=== PATIENT | male | born 1945 | race Caucasian/White ===

== ENCOUNTER 2018-11-06 12:45 | Outpatient (CLI) | payer MEDICARE ==
--- NOTE | 2018-11-06 14:39 | XRAY Report ---
Reason: ARTHRITIC DEFORMITY Procedure Date: 11/06/2018 Accession Number: [id number] / [id number] Procedure: XR - Hand 2 View BILAT CPT Code: FULL RESULT: EXAMS: 1. Right Hand Radiography 2. Left Hand Radiography EXAM DATE: 11/06/2018 01:22 PM. CLINICAL HISTORY: ARTHRITIC DEFORMITY. COMPARISON: None. TECHNIQUE: 2 views each hand. FINDINGS: Right: Bones: Bone density appears normal for age. No fractures or bone lesions. Joints: Significant degenerative joint space narrowing and productive arthrosis of the fourth IP joint, first CMC joint and base of thumb. Milder degenerative joint space narrowing of the second and third MCP joints and STT joints of the wrist. Soft Tissues: Fusiform soft tissue swelling of the fourth IP joint and base of thumb region. Left: Bones: Bone density appears normal for age. No fractures or bone lesions. Joints: Asymmetric degenerative joint space narrowing of the first through third MCP joints with mild to moderate osteoarthrosis of the first and second MCP joint and mild arthrosis of the third MCP joint. Mild degenerative changes of the second DIP. Soft Tissues: Normal. No soft tissue swelling. IMPRESSION: Bilateral asymmetric pattern of osteoarthritis as described worse on the right. RADIA
--- NOTE | 2018-11-06 14:40 | XRAY Report ---
Reason: ARTHRICTIC DEFORMITY Procedure Date: 11/06/2018 Accession Number: [id number] / [id number] Procedure: XR - Wrist 2 View BILAT CPT Code: FULL RESULT: EXAMS: 1. RIGHT WRIST RADIOGRAPHY 2. LEFT WRIST RADIOGRAPHY EXAM DATE: 11/06/2018 01:31 PM. CLINICAL HISTORY: Arthritic deformity. COMPARISON: None. TECHNIQUE: 2 views each wrist. FINDINGS: Right: Bones: Normal. No fractures or bone lesions. Joints: Mild to moderate widening of the scapholunate distance. Moderate productive osteoarthritis of the base of thumb. Mild degenerative arthrosis of the STT joint. Soft Tissues: Normal. No soft tissue swelling. Left: Bones: Normal. No fractures or bone lesions. Joints: Mild to moderate widening of the scapholunate distance. Soft Tissues: Normal. No soft tissue swelling. 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 RADIA
== END 2018-11-06 12:46 | disposition home or self-care (01) ==
LOC: DI 12:45
PROVIDERS: ATTEND Internal Medicine
DX: M19.042 Primary osteoarthritis, left hand (principal); M19.041 Primary osteoarthritis, right hand; M18.0 Bilateral primary osteoarthritis of first carpometacarpal joints; M19.032 Primary osteoarthritis, left wrist; M19.031 Primary osteoarthritis, right wrist

== ENCOUNTER 2018-11-24 08:10 | Outpatient (CLI) | payer MEDICARE ==
--- NOTE | 2018-11-24 12:18 | DEXA Report ---
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 Regions measured are the AP Spine, femoral neck, and if needed forearm. COMPARISON: The 10/11/2014 examination cannot be directly compared as this prior study was performed on a device from a different mobile application architect. In accordance with the International Society for Clinical Densitometry (ISCD) guidelines, data from previous exams may be reanalyzed using current recommendations and techniques. This is done to allow a more accurate basis for comparison with the current study. FINDINGS: The data for the lumbar spine is as follows: BMD (g/cm/cm) T-SCORE Z-SCORE REGION L1 0.878 -2.4 -2.2 L2 0.928 -2.6 -2.5 L3 1.108 -1.1 -1.0 L4 1.158 -0.7 -0.6 TOTAL 1.021 -1.7 -1.5 NOTE: All evaluable vertebrae are used for classification The data for the hip is as follows: BMD (g/cm/cm) T-SCORE Z-SCORE REGION Neck 0.837 -1.8 -1.3 TOTAL 0.832 -1.9 -1.8 NOTE: The femoral neck or total proximal femur, whichever is lowest, is used for classification. IMPRESSION: THE WHO CLASSIFICATION BASED ON THE INTERNATIONAL REFERENCE STANDARD IS OSTEOPENIA. THE FRACTURE RISK IS INCREASED. RECOMMENDATION: Patients with diagnosis of osteoporosis or osteopenia should have regular bone mineral density assessment. For those eligible for Medicare, routine testing is allowed once every 2 years. Testing frequency can be increased for patients who have rapidly progressing disease or for those who are receiving medical therapy to restore bone mass. COMMENT: World Health Organization (WHO) definitions for osteoporosis and osteopenia: NORMAL BMD: T-score at -1.0 or higher, fracture risk is low OSTEOPENIA BMD: T-score between -1.0 and -2.5, fracture risk is increased. OSTEOPOROSIS BMD: T-score at -2.5 or lower, fracture risk is high. National Osteoporosis Foundation recommends: 1. Obtain adequate dietary calcium (at least 1200 mg per day) and vitamin D (400-800 international units per day). 2. Participate, as appropriate, in regular weightbearing and muscle-strengthening exercise. 3. Avoid tobacco use and reduce alcohol and caffeine intake. 4. For more detailed information see the website at www.NOF.org.
== END 2018-11-24 08:11 | disposition home or self-care (01) ==
LOC: DI 08:10
PROVIDERS: ATTEND Internal Medicine
DX: Z13.820 Encounter for screening for osteoporosis (principal); M85.89 Other specified disorders of bone density and structure, multiple sites; Z79.52 Long term (current) use of systemic steroids
CPT/HCPCS: 77080

== ENCOUNTER 2021-08-23 13:28 | Outpatient (CLI) | payer MEDICARE | END 2021-08-23 13:29 | disposition critical access hospital (66) | LOC: EMS 13:28 | DX: S61.512A Laceration without foreign body of left wrist, initial encounter (principal); W01.0XXA Fall on same level from slipping, tripping and stumbling without subsequent striking against object, initial encounter; W26.9XXA Contact with unspecified sharp object(s), initial encounter; Y92.009 Unspecified place in unspecified non-institutional (private) residence as the place of occurrence of the external cause | CPT/HCPCS: A0425; A0429 ==

== ENCOUNTER 2021-08-23 13:40 | Emergency (ER) | payer MEDICARE ==
[2021-08-23] MEDS ORDERED: BUFFERED LIDOCAINE 10 ML SYRINGE IU ONE (14:01)
[2021-08-23] MEDS ORDERED: TETANUS/DIPHTHERIA/PERTUSSIS 0.5 ML SYRINGE IM ONE (14:02)
[2021-08-23] MEDS ORDERED: HYDROmorphone 1 MG/ML CARPUJECT IVP STA (14:04)
[2021-08-23] MEDS ORDERED: oxyCODONE 5 MG TABLET PO STA ×2 (14:05→14:46)
[2021-08-23] MEDS ORDERED: lidocaine 1% 20 ML MDV SUBQ STA (14:06)
--- NOTE | 2021-08-23 14:06 | ED Physician Documentation ---
History of Present Illness - Stated complaint Stated Complaint: GLF/FOREARM LAC - Chief complaint Chief Complaint: Laceration - History obtained from History obtained from: Patient - Additonal information Additional information: Patient is brought to the emergency department by EMS for chief complaint of left wrist laceration and ground-level fall. The patient was walking when he tripped and fell on a glass jug, which broke, lacerating his left wrist and hand. The patient states that he was not hurt in any other way. He does not know when his last tetanus shot was. No other complaints at this time. Review of Systems Ten Systems: 10 systems reviewed and negative Constitutional: reports: Reviewed and negative Eyes: reports: Reviewed and negative Ears: reports: Reviewed and negative Nose: reports: Reviewed and negative Throat: reports: Reviewed and negative Cardiac: reports: Reviewed and negative Respiratory: reports: Reviewed and negative GI: reports: Reviewed and negative : reports: Reviewed and negative Skin: reports: Laceration (s) Musculoskeletal: reports: Reviewed and negative Neurologic: reports: Reviewed and negative Psychiatric: reports: Reviewed and negative Endocrine: reports: Reviewed and negative Immunocompromised: reports: Reviewed and negative PD PAST MEDICAL HISTORY - Past Medical History Cardiovascular: Hypertension Respiratory: Asthma Endocrine/Autoimmune: None GI: None : None HEENT: None Psych: None Musculoskeletal: Osteoarthritis Derm: None - Past Surgical History Past Surgical History: Yes - Present Medications Home Medications: Ambulatory Orders Medication Instructions Recorded Confirmed Albuterol 2.5 mg INH Q4H PRN 04/14/13 04/14/13 oxyCODONE ORAL SOLN [Roxicodone] 10 mg PO 04/14/13 04/14/13 Docusate Calcium [Stool Softener] 240 mg PO 11/21/13 11/21/13 Prednisone 20 mg PO BID PRN 11/21/13 11/21/13 lisinopriL [Lisinopril] 5 mg PO 11/21/13 11/21/13 - Allergies Allergies/Adverse Reactions: Allergies Allergy/AdvReac Type Severity Reaction Status Date / Time No Known Drug Allergies Allergy Verified 08/23/21 13:55 - Social History Does the pt smoke?: No Smoking Status: Former smoker Does the pt drink ETOH?: No PD ED PE NORMAL - Vitals Vital signs reviewed: Yes - General General: Alert and oriented X 3, No acute distress, Well developed/nourished - HEENT HEENT: Atraumatic, PERRL, EOMI, Moist mucous membranes - Cardiac Cardiac: Strong equal pulses (Pulses strong wound left wrist) - Respiratory Respiratory: No respiratory distress - Derm Derm: Normal color, Warm and dry, No rash, Other (20x 1.5 cm (variable) lac extending from proximal first and proximally to wrist and forearm. Flexor tendon which appears to most likely be palmaris longus has been lacerated completely. Nonpulsatile bleeding from wound.) - Extremities Extremities: No deformity, No edema, Other (Flexion to resistance intact at all joints of all fingers. Flexion against resistance intact at the wrist, though diminished, but difficult to tell if this is secondary to pain.) - Neuro Neuro: Alert and oriented X 3 - Psych Psych: Normal mood, Normal affect Results - Vitals Vitals: Oxygen O2 Source Room air - Labs Labs: Laboratory Tests 08/23/21 15:05 WBC 16.4 H RBC 3.05 L Hgb 9.6 L Hct 29.3 L MCV 96.1 H MCH 31.5 H MCHC 32.8 RDW 13.2 Plt Count 188 MPV 9.1 Neut # (Auto) 12.5 H Lymph # (Auto) 1.9 [place] # (Auto) 1.7 H Eos # (Auto) 0.1 Baso # (Auto) 0.0 Absolute Nucleated RBC 0.00 Band Neuts % (Manual) Not Reportable Abnorm Lymph % (Manual) Not Reportable Nucleated RBC % 0.0 Neutrophils # (Manual) Not Reportable Lymphocytes # (Manual) Not Reportable Monocytes # (Manual) Not Reportable Eosinophils # (Manual) Not Reportable Basophils # (Manual) Not Reportable Differential Comment MANUAL=AUTO DIFF Manual Slide Review Indicated Platelet Estimate NORMAL (130-450,000) Platelet Morphology NORMAL APPEARANCE RBC Morph Micro Appear NORMAL APPEARANCE Procedures - Laceration (location) Left wrist/Hand Length in cm: 20 Wound type: Curved, Irregular, Into subcut fat, Clean Neurovascular status: Sensory intact, Motor intact, Other (Small arteriolar pulsatile bleeding.) Tendon involvement: Tendon Injury (Complete flexor tendon laceration, appears to be palmaris longus. No other lacerated tendons noted.) Anesthesia: Lidocaine 1%, Volume - enter ml (30) Wound preparation: Betadine, Hibiclens, Irrigated copiously NS, Wound explored, To the base, debridement of wound edges (traumatic laceration/avulsion) (Mild) Skin layer closure: Nylon, Interrupted, Size #-0 - enter number (4.0), Sutures - enter # (33) Other: Patient tolerated well, No complications, Neurovascular intact, Dressing applied, Tetanus booster given, Other (Initial sutures were placed in the vicinity of the small arterial injury. This did result in hemostasis. Only the distal end of the flexor tendon was visible in the wound, and so repair was not attempted of this. The skin and soft tissue were closed as above.) PD MEDICAL DECISION MAKING - ED course Complexity details: reviewed results, re-evaluated patient, considered differential, d/w patient ED course: The patient's laceration was repaired with 33 sutures as above. His case was discussed with Ms. Chand, the PA on-call for hand surgeon Dr. Guillermo Murillo out of [facility] (patient prefers to follow-up in [place] rather than [place]). She has stated that she will relay the message to Dr. Murillo that the patient will be seeking expedited follow-up with him for his flexor tendon laceration. The patient's tetanus was updated today. We have discussed the need for urgent follow-up, as well as principles of wound care at home. Patient understands that his sutures will need to be removed in 10 days, but that since he should be following up with hand specialist prior to this, they will most likely remove the sutures at one of his visits with them. We have discussed symptoms of wound infection, as well as the usual indications for return. Departure - Departure Disposition: 01 Home, Self Care Clinical Impression: Laceration Flexor tendon laceration of left wrist with open wound Qualifiers: Encounter type: initial encounter Qualified Code(s): S66.922A - Laceration of unspecified muscle, fascia and tendon at wrist and hand level, left hand, initial encounter Condition: Stable Instructions: Laceration Flexor Tendon Tx, ED Laceration All Follow-Up: Guillermo Murillo MD [Physician No Access] - Comments: Your laceration was repaired with 33 sutures today. You do have 1 tendon in your wrist that has been lacerated, which appears to be your palmaris longus tendon. It is very important that you follow-up with the hand specialist to determine whether this will need surgical repair. You should be seen for this as soon as possible, within this calendar week. We will make contact with the on-call surgeon for their clinic, as the clinic is not open on Tuesday, and hospitals are not excepting transfers right now, due to overloading. You may continue to take your pain medications to help with the pain. Additionally, you may apply ice packs to the area to help with swelling and pain. The sutures will need to be kept in place for 10 days, after which they should be removed by medical professional. However, because you need to follow-up with the hand specialist prior to this time, the sutures will most likely be Removed in the hand clinic. Your wound has been sterilely repaired To minimize the chance of infection; however, if you begin to notice redness spreading progressively away from the wound, or if the wound drains what appears to be pus, you should have it rechecked right away. You will most likely have swelling and bruising along the course of the wound, and this is to be expected after this extensive uppercut. This will resolve over the next week or two. Your tetanus shot has been updated today. He will need your next one in about 10 years. Discharge Date/Time: 08/23/21 16:12
[2021-08-23] MEDS ORDERED: lidocaine 1% 20 ML MDV ONE (14:34)
[2021-08-23 15:10] LABS: BASOPHILS % (AUTO) 0.2 %; EOSINOPHILS # (AUTO) 0.1 10^3/uL (0.0-0.7); EOSINOPHILS % (AUTO) 0.7 %; HCT - HEMATOCRIT 29.3 % (42.0-52.0); HGB - HEMOGLOBIN 9.6 g/dL (14.0-18.0); LYMPHOCYTES # (AUTO) 1.9 10^3/uL (1.5-3.5); LYMPHOCYTES % (AUTO) 11.7 %; MEAN CORPUSCULAR HEMOGLOBIN 31.5 pg (27.0-31.0); MEAN CORPUSCULAR HGB CONC 32.8 g/dL (32.0-36.0); MEAN CORPUSCULAR VOLUME 96.1 fL (80.0-94.0); MEAN PLATELET VOLUME 9.1 fL (7.4-11.4); MONOCYTES # (AUTO) 1.7 10^3/uL (0.0-1.0); MONOCYTES % (AUTO) 10.5 %; NEUTROPHILS # (AUTO) 12.5 10^3/uL (1.5-6.6); NEUTROPHILS % (AUTO) 76.1 %; PLT - PLATELET COUNT 188 10^3/uL (130-450); RED BLOOD COUNT 3.05 10^6/uL (4.70-6.10); RED CELL DISTRIBUTION WIDTH 13.2 % (12.0-15.0); WHITE BLOOD COUNT 16.4 x10^3/uL (4.8-10.8)
[2021-08-23 15:18] LABS: SLIDE REVIEW? Indicated
[2021-08-23 15:38] LABS: DIFFERENTIAL COMMENT MANUAL=AUTO DIFF; PLATELET ESTIMATE, MANUAL NORMAL (130-450,000) (NORMAL); PLATELET MORPHOLOGY NORMAL APPEARANCE (NORMAL); RBC MORPHOLOGY (MULTIPLE) NORMAL APPEARANCE (NORMAL)
[2021-08-23 16:12] VITALS: BP 94/56
== END 2021-08-23 16:12 | disposition home or self-care (01) ==
LOC: EDUNIT# → ED 13:40
DX: S66.922A Laceration of unspecified muscle, fascia and tendon at wrist and hand level, left hand, initial encounter (principal); W01.110A Fall on same level from slipping, tripping and stumbling with subsequent striking against sharp glass, initial encounter; Y93.01 Activity, walking, marching and hiking; Z87.891 Personal history of nicotine dependence; Z23 Encounter for immunization
CPT/HCPCS: 12005; 36415; 85025; 90471; 90715; 96374; 99283; A9270; J1170

== ENCOUNTER 2022-12-31 11:05 | Outpatient (CLI) | payer MEDICARE ==
--- NOTE | 2022-12-31 13:00 | XRAY Report ---
PROCEDURE: Chest 2 View X-Ray INDICATIONS: CHEST PAIN TECHNIQUE: 2 views of the chest were acquired. COMPARISON: Chest radiograph 03/18/2022. FINDINGS: Surgical changes and devices: None. Lungs and pleura: Coarse bilateral interstitial markings are again seen that do not appear significa nt changed compared to the exam from 1121. Lungs are mildly hyperexpanded. No focal consolidation. No pleural effusion or pneumothorax. Mediastinum: Mediastinal contours appear normal. Heart size is normal. Bones and chest wall: No suspicious bony lesions. Overlying soft tissues appear unremarkable. Rem ote prior healed fracture of the right clavicle. IMPRESSION: No acute cardiopulmonary abnormality. Stable chronic interstitial markings. Reviewed by: Seven Nash MD on 12/31/2022 12:59 PM PDT Approved by: Seven Nash MD on 12/31/2022 12:59 PM PDT Station ID: [id number]
== END 2022-12-31 11:06 | disposition home or self-care (01) ==
LOC: DI 11:05
PROVIDERS: ATTEND Internal Medicine
DX: R07.9 Chest pain, unspecified (principal); R60.0 Localized edema; I27.20 Pulmonary hypertension, unspecified

== ENCOUNTER 2023-03-15 07:38 | Outpatient (CLI) | payer MEDICARE | END 2023-03-15 07:39 | disposition home or self-care (01) | LOC: DI 07:38 | PROVIDERS: ATTEND Internal Medicine | DX: I27.20 Pulmonary hypertension, unspecified (principal); I51.7 Cardiomegaly; I77.810 Thoracic aortic ectasia | CPT/HCPCS: 93306 ==

== ENCOUNTER 2023-06-12 08:24 | Outpatient (CLI) | payer MEDICARE ==
--- NOTE | 2023-06-12 15:34 | Ultrasound Report ---
PROCEDURE: Abdomen Limited INDICATIONS: PULMONARY HYPERTENSION, EDEMA TECHNIQUE: Real-time focused scanning was performed of the abdomen, with image documentation. COMPARISONS: None. FINDINGS: Liver: Liver measures 11.2 cm in length and has a heterogeneous echotexture. The hepatic veins are w idely patent with appropriate flow. The caudate lobe has a normal appearance. Gallbladder: Gallbladder wall measures 2 mm in diameter. There is a phrygian cap present. No stones, sludge, pericholecystic fluid or sonographic Cooper sign. Biliary ducts: Intrahepatic bile ducts are non-dilated. Extrahepatic bile duct caliber measures 3 m m. Normal is 6-7 mm or less in diameter, or 10 mm or less post-cholecystectomy. Pancreas: Not visualized. Right kidney: Normal in size and echotexture. Right kidney measures 9.3 cm long. No hydronephrosis o r nephrolithiasis. No solid masses. No complex renal cystic lesions which require follow-up. Aorta: Visualized aorta is normal in caliber at less than 3 cm. IVC: Intrahepatic inferior vena cava is patent. Miscellaneous: No free abdominal fluid. IMPRESSION: 1. Mildly increased hepatic echotexture which may be associated with mild hepatic steatosis. No findi ngs to suggest cirrhotic transformation. Reviewed by: Teresita Loyd MD on 06/12/2023 3:32 PM PST Approved by: Teresita Loyd MD on 06/12/2023 3:32 PM PST Station ID: [id number]
== END 2023-06-12 08:25 | disposition home or self-care (01) ==
LOC: DI 08:24
PROVIDERS: ATTEND Internal Medicine
DX: I27.20 Pulmonary hypertension, unspecified (principal); R60.0 Localized edema

== ENCOUNTER 2023-07-11 17:46 | Emergency (ER) | payer MEDICARE ==
[2023-07-11] MEDS ORDERED: IPRATROPIUM/ALBUTEROL 3 ML NEB INH STA (18:38)
[2023-07-11] MEDS ORDERED: methylPREDNISolone SUCCINATE 125 MG/2 ML VIAL IVP STA ×2 (18:39→19:35)
[2023-07-11 19:03] LABS: BASOPHILS % (AUTO) 0.1 %; EOSINOPHILS % (AUTO) 0.2 %; HCT - HEMATOCRIT 29.5 % (42.0-52.0); HGB - HEMOGLOBIN 9.3 g/dL (14.0-18.0); LYMPHOCYTES % (AUTO) 11.8 %; MEAN CORPUSCULAR HEMOGLOBIN 28.8 pg (27.0-31.0); MEAN CORPUSCULAR HGB CONC 31.5 g/dL (32.0-36.0); MEAN CORPUSCULAR VOLUME 91.3 fL (80.0-94.0); MEAN PLATELET VOLUME 8.7 fL (7.4-11.4); MONOCYTES # (AUTO) 1.5 10^3/uL (0.0-1.0); NEUTROPHILS % (AUTO) 78.5 %; PLT - PLATELET COUNT 268 10^3/uL (130-450); RED BLOOD COUNT 3.23 10^6/uL (4.70-6.10); RED CELL DISTRIBUTION WIDTH 14.4 % (12.0-15.0); WHITE BLOOD COUNT 16.6 x10^3/uL (4.8-10.8)
[2023-07-11 19:19] LABS: RAPID STREP SCREEN Negative (Negative)
[2023-07-11 19:20] LABS: ALBUMIN 3.4 g/dL (3.2-5.5); ALBUMIN/GLOBULIN RATIO 1.5 (1.0-2.2); ALKALINE PHOSPHATASE 55 IU/L (42-121); ALT ALANINE AMINOTRANSFERASE 12 IU/L (10-60); AST ASPARTATE AMINOTRANSFERASE 18 IU/L (10-42); BILIRUBIN,TOTAL 0.8 mg/dL (0.2-1.0); BUN - BLOOD UREA NITROGEN 12 mg/dL (6-20); CALCIUM 8.7 mg/dL (8.5-10.3); CARBON DIOXIDE - CO2 30 mmol/L (21-32); CHLORIDE 98 mmol/L (101-111); CREATININE 0.5 mg/dL (0.6-1.3); GFR - MDRD 162 (>89); GLUCOSE 79 mg/dL (74-104); LIPASE < 10 U/L (11-82); POTASSIUM 3.4 mmol/L (3.5-4.5); SODIUM 134 mmol/L (135-145); TOTAL PROTEIN 5.6 g/dL (6.4-8.9)
[2023-07-11 19:54] LABS: B. PARAPERTUSSIS- RESP PCR PAN NOT DETECTED; B. PERTUSSIS- RESP PCR PANEL NOT DETECTED; C. PNEUMONIAE- RESP PCR PANEL NOT DETECTED; CORONAVIRUS 229E-RESP PCR NOT DETECTED; CORONAVIRUS HKU1-RESP PCR NOT DETECTED; CORONAVIRUS NL63-RESP PCR NOT DETECTED; CORONAVIRUS OC43-RESP PCR NOT DETECTED; HUMAN METAPNEUMOVIRUS NOT DETECTED; INFLUENZA A- RESP PCR PANEL NOT DETECTED; INFLUENZA B - RESP PCR PANEL NOT DETECTED; M. PNEUMONIAE- RESP PCR PANEL NOT DETECTED; PARAINFLUENZA VIRUS 1 NOT DETECTED; PARAINFLUENZA VIRUS 2 NOT DETECTED; PARAINFLUENZA VIRUS 3 NOT DETECTED; PARAINFLUENZA VIRUS 4 NOT DETECTED; RHINOVIRUS/ENTEROVIRUS NOT DETECTED; RSV- RESP PCR PANEL NOT DETECTED; SARS-CoV-2 -RESP PCR PANEL NOT DETECTED
--- NOTE | 2023-07-11 19:56 | XRAY Report ---
PROCEDURE: Chest 1 View X-Ray INDICATIONS: cough TECHNIQUE: One view of the chest was acquired. COMPARISON: 12/31/2022. FINDINGS: Surgical changes and devices: None. Lungs and pleura: No pleural effusions or pneumothorax. Increased bronchovascular markings in bilate ral hilar region are seen with mild bronchial wall thickening. Ill-defined is subtle opacities are se en scattered in bilateral lung shell. Mediastinum: Mediastinal contours appear normal. Heart size is normal. Bones and chest wall: No suspicious bony lesions. Overlying soft tissues appear unremarkable. IMPRESSION: Finding is concerning for scattered bilateral patchy infiltrates. No pleural effusion or pneumothorax . Reviewed by: Ad Muller MD on 07/11/2023 7:55 PM PST Approved by: Ad Muller MD on 07/11/2023 7:55 PM PST Station ID: [id number]
--- NOTE | 2023-07-11 20:14 | ED Physician Documentation ---
History of Present Illness - Stated complaint Stated Complaint: SOA - Chief complaint Chief Complaint: Resp - History obtained from History obtained from: Patient, Family - History of Present Illness Pain level max: 6 Pain level now: 6 - Additonal information Additional information: Patient is a 77-year-old male who presents to the emergency department with cough and sore throat ongoing for the past several days. History of COPD. Started on Augmentin and azithromycin today by his primary care provider. Continues to have coughing tonight. Continues to have pain with swallowing. Nothing makes it better or worse. Patient is currently on prednisone, 20 mg daily. Review of Systems Constitutional: denies: Fever, Chills Cardiac: denies: Chest pain / pressure, Palpitations Respiratory: reports: Dyspnea, Cough, Wheezing GI: denies: Vomiting, Diarrhea : reports: Dysuria (Garcia catheter) Skin: denies: Rash Musculoskeletal: denies: Neck pain, Back pain Neurologic: denies: Headache PD PAST MEDICAL HISTORY - Past Medical History Past Medical History: Yes Cardiovascular: Hypertension Respiratory: Asthma Endocrine/Autoimmune: None GI: None : None HEENT: None Psych: None Musculoskeletal: Osteoarthritis Derm: None - Past Surgical History Past Surgical History: Yes - Present Medications Home Medications: Ambulatory Orders Medication Instructions Recorded Confirmed Albuterol 2.5 mg INH Q4H PRN 04/14/13 04/14/13 oxyCODONE ORAL SOLN [Roxicodone] 10 mg PO 04/14/13 04/14/13 Docusate Calcium [Stool Softener] 240 mg PO 11/21/13 11/21/13 Prednisone 20 mg PO BID PRN 11/21/13 11/21/13 lisinopriL [Lisinopril] 5 mg PO 11/21/13 11/21/13 Benzonatate [Tessalon] 200 mg PO TID PRN #30 cap 07/11/23 Furosemide [Lasix] 20 mg PO DAILY #7 tablet 07/11/23 predniSONE [Deltasone] 10 mg PO [id number] #42 tab 07/11/23 - Allergies Allergies/Adverse Reactions: Allergies Allergy/AdvReac Type Severity Reaction Status Date / Time No Known Drug Allergies Allergy Verified 07/11/23 17:50 - Social History Does the pt smoke?: No Smoking Status: Never smoker Does the pt drink ETOH?: No Does the pt have substance abuse?: No PD ED PE NORMAL - Vitals Vital signs reviewed: Yes - General General: Alert and oriented X 3, No acute distress, Well developed/nourished - HEENT HEENT: PERRL, Ears normal, Moist mucous membranes, Pharynx benign - Neck Neck: Supple, no meningeal sign - Cardiac Cardiac: RRR, Strong equal pulses - Respiratory Respiratory: No respiratory distress, Other (Diminished breath sounds and wheezing bilaterally) - Abdomen Abdomen: Normal bowel sounds, Soft, Non tender, Non distended - Derm Derm: Warm and dry - Extremities Extremities: Other (1+ bilateral lower extremity pitting edema) - Neuro Neuro: Alert and oriented X 3 - Psych Psych: Normal mood, Normal affect Results - Vitals Vitals: Vital Signs - 24 hr 07/11/23 07/11/23 07/11/23 17:50 19:05 19:28 Temperature 36.8 C Heart Rate 53 L 106 H 105 H Respiratory 22 24 20 Rate Blood Pressure 148/92 H 148/94 H O2 Saturation 98 94 07/11/23 07/11/23 19:29 21:10 Temperature 37 C Heart Rate 104 H 75 Respiratory 24 20 Rate Blood Pressure 141/81 H 128/74 O2 Saturation 94 100 Oxygen O2 Source Room air Oxygen Flow Rate 2 - Labs Labs: Laboratory Tests 07/11/23 07/11/23 07/11/23 18:45 18:45 18:58 WBC 16.6 H RBC 3.23 L Hgb 9.3 L Hct 29.5 L MCV 91.3 MCH 28.8 MCHC 31.5 L RDW 14.4 Plt Count 268 MPV 8.7 Neut # (Auto) 13.0 H Lymph # (Auto) 2.0 Major # (Auto) 1.5 H Eos # (Auto) 0.0 Baso # (Auto) 0.0 Absolute Nucleated RBC 0.00 Nucleated RBC % 0.0 Sodium Potassium Chloride Carbon Dioxide Anion Gap BUN Creatinine Estimated GFR (MDRD) Glucose Calcium Total Bilirubin AST ALT Alkaline Phosphatase B-Natriuretic Peptide Total Protein Albumin Globulin Albumin/Globulin Ratio Lipase Nasal Adenovirus (PCR) NOT DETECTED Nasal B. parapertussis DNA (PCR) NOT DETECTED Nasal Coronavir 229E PCR NOT DETECTED Nasal Coronavir HKU1 PCR NOT DETECTED Nasal Coronavir NL63 PCR NOT DETECTED Nasal Coronavir OC43 PCR NOT DETECTED Nasal Enterovir/Rhinovir PCR NOT DETECTED Nasal Influenza B PCR NOT DETECTED Nasal Influenza A PCR NOT DETECTED Nasal Parainfluen 1 PCR NOT DETECTED Nasal Parainfluen 2 PCR NOT DETECTED Nasal Parainfluen 3 PCR NOT DETECTED Nasal Parainfluen 4 PCR NOT DETECTED Nasal RSV (PCR) NOT DETECTED Nasal B.pertussis DNA PCR NOT DETECTED Nasal C.pneumoniae (PCR) NOT DETECTED Carlos Human Metapneumo PCR NOT DETECTED Nasal M.pneumoniae (PCR) NOT DETECTED Nasal SARS-CoV-2 (PCR) NOT DETECTED Group A Strep Rapid Negative 07/11/23 07/11/23 18:58 18:58 WBC RBC Hgb Hct MCV MCH MCHC RDW Plt Count MPV Neut # (Auto) Lymph # (Auto) Major # (Auto) Eos # (Auto) Baso # (Auto) Absolute Nucleated RBC Nucleated RBC % Sodium 134 L Potassium 3.4 L Chloride 98 L Carbon Dioxide 30 Anion Gap 6.0 BUN 12 Creatinine 0.5 L Estimated GFR (MDRD) 162 Glucose 79 Calcium 8.7 Total Bilirubin 0.8 AST 18 ALT 12 Alkaline Phosphatase 55 B-Natriuretic Peptide 321 H Total Protein 5.6 L Albumin 3.4 Globulin 2.2 Albumin/Globulin Ratio 1.5 Lipase < 10 L Nasal Adenovirus (PCR) Nasal B. parapertussis DNA (PCR) Nasal Coronavir 229E PCR Nasal Coronavir HKU1 PCR Nasal Coronavir NL63 PCR Nasal Coronavir OC43 PCR Nasal Enterovir/Rhinovir PCR Nasal Influenza B PCR Nasal Influenza A PCR Nasal Parainfluen 1 PCR Nasal Parainfluen 2 PCR Nasal Parainfluen 3 PCR Nasal Parainfluen 4 PCR Nasal RSV (PCR) Nasal B.pertussis DNA PCR Nasal C.pneumoniae (PCR) Carlos Human Metapneumo PCR Nasal M.pneumoniae (PCR) Nasal SARS-CoV-2 (PCR) Group A Strep Rapid - Rads (name of study) cxr Relevant Findings:: Final report received, See rad report PD Medical Decision Making - ED course Complexity details: reviewed results, re-evaluated patient, considered differential, d/w patient ED course: Patient is very well-appearing, nontoxic. No hypoxia. No respiratory distress. Given several nebulizer treatments and breathing improved. Given Lasix for the swelling in his legs. He has been on Lasix several times in the past but is not currently taking this. He was placed on antibiotics today by his primary care provider, Augmentin and azithromycin for possible pneumonia. He states he has not been able to swallow his morphine because his throat has been hurting, therefore he was given a dose of morphine here and feels better. Speaking in full sentences. Ambulatory here. Has a chronic indwelling Garcia catheter. We will prescribe steroids and Lasix for home. Recommend that he talk to his doctor in the morning about changing his pain medication to a liquid version as this may be easier for him to swallow since he cannot crush with the extended release morphine. Patient is very well-appearing, nontoxic. No evidence of sepsis. Patient counseled regarding signs and symptoms for which I believe and urgent re-evaluation would be necessary. Patient with good understanding of and agreement to plan and is comfortable going home at this time This document was made in part using voice recognition software. While efforts are made to proofread this document, sound alike and grammatical errors may occur. Departure - Departure Disposition: Home, Self Care Clinical Impression: COPD exacerbation Condition: Good Instructions: ED COPD Flare, ED Edema Legs Bilateral Follow-Up: Butch Mendez MD [Primary Care Provider] - Within 3 Days Prescriptions: predniSONE [Deltasone] 10 mg PO [id number] #42 tab Furosemide [Lasix] 20 mg PO DAILY #7 tablet Benzonatate [Tessalon] 200 mg PO TID PRN #30 cap PRN Reason: Cough Comments: Your prescription was sent to the [facility] pharmacy. Please follow-up with your doctor for further care. Please return if you worsen.Your oxygen levels are normal tonight. We will increase your steroids at home. We will also restart your Lasix that you have been on in the past for your leg swelling. Please take the antibiotics as prescribed by your doctor earlier today. Your respiratory panel is negative. Your COVID test is negative. You can contact Dr. Mendez tomorrow to discuss changing your morphine to the liquid version as this will be easier for you to swallow. Forms: PCP List
[2023-07-11] MEDS ORDERED: FUROSEMIDE 40 MG/4 ML VIAL IVP STA (20:33)
[2023-07-11] MEDS ORDERED: ALBUTEROL NEB 2.5 MG/3 ML INH STA (20:37)
[2023-07-11] MEDS ORDERED: ALBUTEROL NEB 2.5 MG/3 ML INH ONE (20:52)
[2023-07-11 21:10] VITALS: BP 128/74; O2SAT 100
[2023-07-11] MEDS ORDERED: MORPHINE 10 MG/ML VIAL IVP STA (21:32)
== END 2023-07-11 22:02 | disposition home or self-care (01) ==
LOC: ED 17:46
DX: J44.1 Chronic obstructive pulmonary disease with (acute) exacerbation (principal); I10 Essential (primary) hypertension
CPT/HCPCS: 36415; 80053; 83690; 83880; 85025; 87070; 87430; 87633; 94664; 96374; 96375; 99284

== ENCOUNTER 2023-07-13 15:43 | Outpatient (CLI) | payer MEDICARE | END 2023-07-13 23:59 | disposition critical access hospital (66) | LOC: EMS 15:43 | DX: R06.03 Acute respiratory distress (principal); R06.2 Wheezing; R23.1 Pallor; I48.91 Unspecified atrial fibrillation; M79.89 Other specified soft tissue disorders | CPT/HCPCS: A0425; A0427 ==

== ENCOUNTER 2023-07-13 15:54 | Emergency (ER) | payer MEDICARE ==
--- NOTE | 2023-07-13 16:05 | ED Physician Documentation ---
PD HPI DYSPNEA - Stated complaint Stated Complaint: SOA - History obtained from History obtained from: Patient - History of Present Illness Timing - onset: How many days ago (has had cough and dyspnea for a week or so. Seen at [facility] and Rx augmentin and zithromax. Has albuterol MDI with some improvemnt initially but not the past 2 days. sore throat with taking pills and eating. Had increased throat pain with PO abx today. He denies choki ng/aspirating.) Timing - onset during: Light activity Timing - duration: Days, Weeks (1) Timing - details: Gradual onset, Still present Inciting event(s): URI. No: Out of meds Associated symptoms: Cough, Wheezing, Chest pain / discomfort. No: Fever, Bilateral edema Recently seen: Clinic Review of Systems Constitutional: reports: Myalgias, Fatigue. denies: Fever, Chills Nose: reports: Congestion. denies: Rhinorrhea / runny nose Throat: reports: Sore throat. denies: Oral lesions / sores Cardiac: reports: Chest pain / pressure. denies: Palpitations, Pedal edema Respiratory: reports: Dyspnea, Cough, Wheezing PD PAST MEDICAL HISTORY - Past Medical History Cardiovascular: Hypertension Respiratory: Asthma Endocrine/Autoimmune: None GI: None : None HEENT: None Psych: None Musculoskeletal: Osteoarthritis Derm: None - Past Surgical History Past Surgical History: Yes - Present Medications Home Medications: Ambulatory Orders Medication Instructions Recorded Confirmed Albuterol 2.5 mg INH Q4H PRN 04/14/13 07/13/23 Albuterol Sulf [Ventolin Hfa 1 - 2 puffs INH Q4HR PRN 07/13/23 07/13/23 Inhaler] Amox/Clav 875/125 [Augmentin 1 tablet PO Q12H 07/13/23 07/13/23 875/125 Tab] Aspirin EC [Ecotrin] 81 mg PO DAILY 07/13/23 07/13/23 Atorvastatin [Lipitor] 20 mg PO QPM 07/13/23 07/13/23 Azithromycin 250 mg PO DAILY 07/13/23 07/13/23 Budesonide/Formoterol Fumarate 2 puffs IH BID 07/13/23 07/13/23 [Symbicort 160-4.5 Mcg Inhaler] Diclofenac Sodium 1% Gel [Voltaren 2 gm TOP QID PRN 07/13/23 07/13/23 Gel] Fluticasone [Flonase] 2 sprays EDEL DAILY 07/13/23 07/13/23 Furosemide [Lasix] 40 mg PO DAILY 07/13/23 07/13/23 Gabapentin [Neurontin] 300 mg PO DAILY 07/13/23 07/13/23 Ipratropium [Atrovent] 0.5 mg INH QID 20 Days #200 ml 07/13/23 Lisinopril [Zestril] 20 mg PO DAILY 07/13/23 07/13/23 Morphine Sulfate [Ms Contin] 15 mg PO BID 07/13/23 07/13/23 Tamsulosin [Flomax] 0.4 mg PO DAILY 07/13/23 07/13/23 diphenhydrAMINE ELIXIR [Benadryl 25 mg PO Q6H PRN #240 ml 07/13/23 Elixir] oxyCODONE [Roxicodone] 30 mg ORAL QID 07/13/23 07/13/23 sulfaSALAzine [Sulfasalazine] 500 mg PO BID 07/13/23 07/13/23 - Allergies Allergies/Adverse Reactions: Allergies Allergy/AdvReac Type Severity Reaction Status Date / Time No Known Drug Allergies Allergy Verified 07/13/23 21:59 - Social History Does the pt smoke?: No Smoking Status: Never smoker Does the pt drink ETOH?: No Does the pt have substance abuse?: No PD ED PE NORMAL - Vitals Vital signs reviewed: Yes - General General: Alert and oriented X 3, Well developed/nourished - HEENT HEENT: Pharynx benign (appears normal to the extent I can see with tongue depressor. ) - Neck Neck: Supple, no meningeal sign, No adenopathy - Cardiac Cardiac: RRR (tachycardic), No murmur - Respiratory Respiratory: No respiratory distress Results - Vitals Vitals: Vital Signs - 24 hr 07/13/23 07/13/23 07/13/23 16:05 16:41 18:00 Temperature 37.2 C Heart Rate 118 H 110 H 105 H Respiratory 22 18 22 Rate Blood Pressure 118/96 H O2 Saturation 98 07/13/23 18:26 Temperature Heart Rate 110 H Respiratory 21 Rate Blood Pressure 139/78 H O2 Saturation 96 Oxygen O2 Source Room air PD Medical Decision Making - ED course Complexity details: reviewed results (CXR with possible infiltrate c/w pneumonia. No effusion. ), considered differential (being treated for pneumonia with augmentin and zithromax. Has taken for 3 days. Has sore throat with illness and pills increasing this. He states he had onset trouble breathing and marked sore throat when took meds. Having dyspnea nd whezing not responding to Albuterol neb. ), d/w patient Departure - Departure Disposition: 01 Home, Self Care Clinical Impression: Throat pain, Dyspnea, Pneumonia Condition: Stable Record reviewed to determine appropriate education?: Yes Prescriptions: Ipratropium [Atrovent] 0.5 mg INH QID 20 Days #200 ml diphenhydrAMINE ELIXIR [Benadryl Elixir] 25 mg PO Q6H PRN #240 ml PRN Reason: Pain 1-4 Comments: Your chest x-ray looks similar to recent 1. You can continue with the antibiotics as previously prescribed. You could consider trying question into something like applesauce or yogurt or such to make it easier to swallow as the powdery nests sometimes can be dry and gets stuck. You seem to have better improvement in your breathing with a combination of ipratropium/Atrovent along with the albuterol. I wrote a prescription for some of the Atrovent to place in your nebulizer along with your current albuterol and do that 4 times daily. Diphenhydramine/Benadryl liquid does have a numbing effect in through the throat as well as helping to dry some of the phlegm. It did seem to help here. I wrote for some of that as well. I sent these to your [facility] pharmacy. There will be closed at this point but open tomorrow. You can use your regular albuterol for the night. Your oxygen level is adequate. Your heart rate is slightly elevated but your breathing is fairly unlabored. I do not see any indications for hospitalization at this point. This really does not mean you may not worsen and please return to the ER if you do feel worse. Otherwise hopefully just a few more days of illness before getting better. Forms: PCP List Discharge Date/Time: 07/13/23 19:19
[2023-07-13] MEDS ORDERED: IPRATROPIUM/ALBUTEROL 3 ML NEB INH STA ×2 (16:24→17:40)
[2023-07-13] MEDS ORDERED: diphenhydrAMINE ELIXIR 25 MG/10 ML UDC PO STA (16:24)
--- NOTE | 2023-07-13 16:49 | XRAY Report ---
PROCEDURE: Chest 1 View X-Ray INDICATIONS: chest pain TECHNIQUE: One view of the chest was acquired. COMPARISON: 07/13/2023 FINDINGS: Surgical changes and devices: None. Lungs and pleura: No pleural effusions or pneumothorax. Mild diffuse reticular nodular pulmonary opa city. Mediastinum: Mediastinal contours appear normal. Heart size is enlarged. Bones and chest wall: No suspicious bony lesions. Overlying soft tissues appear unremarkable. IMPRESSION: Mild edema versus atypical pneumonia. Reviewed by: Judah Mensah MD on 07/13/2023 4:48 PM PST Approved by: Judah Mensah MD on 07/13/2023 4:48 PM PST Station ID: [id number]
[2023-07-13] MEDS ORDERED: dexAMETHasone 4 MG TABLET PO STA (18:04)
[2023-07-13 18:27] VITALS: BP 139/78; O2SAT 96
== END 2023-07-13 19:19 | disposition home or self-care (01) ==
LOC: EDUNIT# → ED 15:54
DX: J02.9 Acute pharyngitis, unspecified (principal); J18.9 Pneumonia, unspecified organism
CPT/HCPCS: 94640; 99285

== ENCOUNTER 2023-07-13 21:16 | Outpatient (CLI) | payer MEDICARE | END 2023-07-13 23:59 | disposition critical access hospital (66) | LOC: EMS 21:16 | DX: R09.2 Respiratory arrest (principal) | CPT/HCPCS: A0425; A0427 ==

== ENCOUNTER 2023-07-13 21:28 | Inpatient (IN) | payer MEDICARE ==
[2023-07-13] MEDS ORDERED: NALOXONE 0.4 MG/ML VIAL IVP STA (21:30)
[2023-07-13] MEDS ORDERED: SODIUM CHLORIDE 0.9% 1,000 ML IV STA (21:31)
[2023-07-13 21:37] LABS: BASOPHILS % (AUTO) 0.2 %; EOSINOPHILS % (AUTO) 0.1 %; HCT - HEMATOCRIT 32.2 % (42.0-52.0); LYMPHOCYTES # (AUTO) 1.2 10^3/uL (1.5-3.5); LYMPHOCYTES % (AUTO) 6.6 %; MEAN CORPUSCULAR HEMOGLOBIN 28.7 pg (27.0-31.0); MEAN CORPUSCULAR HGB CONC 31.1 g/dL (32.0-36.0); MEAN CORPUSCULAR VOLUME 92.5 fL (80.0-94.0); MEAN PLATELET VOLUME 8.6 fL (7.4-11.4); MONOCYTES # (AUTO) 0.4 10^3/uL (0.0-1.0); MONOCYTES % (AUTO) 2.3 %; NEUTROPHILS # (AUTO) 16.7 10^3/uL (1.5-6.6); NEUTROPHILS % (AUTO) 89.9 %; PLT - PLATELET COUNT 307 10^3/uL (130-450); RED BLOOD COUNT 3.48 10^6/uL (4.70-6.10); WHITE BLOOD COUNT 18.6 x10^3/uL (4.8-10.8)
--- NOTE | 2023-07-13 21:37 | ED Physician Documentation ---
History of Present Illness - Stated complaint Stated Complaint: UNRESPONSIVE - History obtained from History obtained from: EMS - Additonal information Additional information: 77yM presents to the ED bibems with ams, after being seen for pneumonia two days prior with cough/soa. patient went home and reportedly may have taken too much of his morphine/oxycodone. roommate witnessed him reporting chest pain and heavy breathing before becoming unresponsive. bystander cpr initiated at 2030. upon ems arrival he had BP 170/100, was tachycardic, with GCS 5. no response to 2mg narcan. on arrival to ED patient persistently unresponsive. PD PAST MEDICAL HISTORY - Past Medical History Cardiovascular: Hypertension Respiratory: Asthma Neuro: None Endocrine/Autoimmune: None GI: None : None HEENT: None Psych: None Musculoskeletal: Osteoarthritis Derm: None - Past Surgical History Past Surgical History: Yes - Present Medications Home Medications: Ambulatory Orders Medication Instructions Recorded Confirmed Albuterol 2.5 mg INH Q4H PRN 04/14/13 07/13/23 Albuterol Sulf [Ventolin Hfa 1 - 2 puffs INH Q4HR PRN 07/13/23 07/13/23 Inhaler] Amox/Clav 875/125 [Augmentin 1 tablet PO Q12H 07/13/23 07/13/23 875/125 Tab] Aspirin EC [Ecotrin] 81 mg PO DAILY 07/13/23 07/13/23 Atorvastatin [Lipitor] 20 mg PO QPM 07/13/23 07/13/23 Azithromycin 250 mg PO DAILY 07/13/23 07/13/23 Budesonide/Formoterol Fumarate 2 puffs IH BID 07/13/23 07/13/23 [Symbicort 160-4.5 Mcg Inhaler] Diclofenac Sodium 1% Gel [Voltaren 2 gm TOP QID PRN 07/13/23 07/13/23 Gel] Fluticasone [Flonase] 2 sprays EDEL DAILY 07/13/23 07/13/23 Furosemide [Lasix] 40 mg PO DAILY 07/13/23 07/13/23 Gabapentin [Neurontin] 300 mg PO DAILY 07/13/23 07/13/23 Ipratropium [Atrovent] 0.5 mg INH QID 20 Days #200 ml 07/13/23 Lisinopril [Zestril] 20 mg PO DAILY 07/13/23 07/13/23 Morphine Sulfate [Ms Contin] 15 mg PO BID 07/13/23 07/13/23 Tamsulosin [Flomax] 0.4 mg PO DAILY 07/13/23 07/13/23 diphenhydrAMINE ELIXIR [Benadryl 25 mg PO Q6H PRN #240 ml 07/13/23 Elixir] oxyCODONE [Roxicodone] 30 mg ORAL QID 07/13/23 07/13/23 sulfaSALAzine [Sulfasalazine] 500 mg PO BID 07/13/23 07/13/23 - Allergies Allergies/Adverse Reactions: Allergies Allergy/AdvReac Type Severity Reaction Status Date / Time No Known Drug Allergies Allergy Verified 07/13/23 21:59 - Social History Does the pt smoke?: No Smoking Status: Never smoker Does the pt drink ETOH?: No Does the pt have substance abuse?: No - Immunizations Immunizations are current?: No Immunizations: Other immun not current PD ED PE NORMAL - Vitals Vital signs reviewed: Yes - General General: Other (unresponsive except to deep sternal rub) - HEENT HEENT: Atraumatic, EOMI, Other (pupils constricted, round, reactive to light) - Neck Neck: Supple, no meningeal sign - Cardiac Cardiac: Other (tachycardic rate, regular rhythm) - Respiratory Respiratory: Other (coarse breath sounds bilaterally) - Derm Derm: Normal color, Warm and dry - Extremities Extremities: No deformity - Neuro Eye Opening: To Pain Motor: Withdraws to Pain Verbal: None GCS Score: 7 Results - Vitals Vitals: Vital Signs - 24 hr 07/13/23 07/13/23 07/13/23 21:30 21:44 22:37 Temperature 37 C Heart Rate 134 H 136 H 121 H Respiratory 22 24 22 Rate Blood Pressure 152/90 H 149/95 H 158/99 H O2 Saturation 99 100 98 If not protocol 2 2 : Oxygen Flow, liters/minute 07/13/23 07/14/23 07/14/23 23:34 00:00 00:30 Temperature Heart Rate 119 H 118 H 117 H Respiratory 26 H 27 H 27 H Rate Blood Pressure 140/97 H 146/93 H 136/92 H O2 Saturation 92 95 92 If not protocol : Oxygen Flow, liters/minute 07/14/23 07/14/23 07/14/23 01:00 01:30 02:00 Temperature Heart Rate 118 H 127 H 113 H Respiratory 27 H 24 20 Rate Blood Pressure 152/104 H 145/98 H 131/93 H O2 Saturation 92 93 100 If not protocol : Oxygen Flow, liters/minute 07/14/23 07/14/23 07/14/23 02:30 03:00 03:57 Temperature Heart Rate 105 H 123 H 122 H Respiratory 19 21 24 Rate Blood Pressure 125/75 136/82 H 132/91 H O2 Saturation 96 92 98 If not protocol : Oxygen Flow, liters/minute 07/14/23 07/14/23 04:00 04:30 Temperature Heart Rate 123 H 113 H Respiratory 22 23 Rate Blood Pressure 145/102 H 141/83 H O2 Saturation 97 97 If not protocol : Oxygen Flow, liters/minute Oxygen O2 Source Room air Oxygen Flow Rate 2 - EKG (time done) 2127 EKG releavant findings:: EKG personally interpreted by author of this note. Relevant findings are: Rate: Rate (enter#) (134) Rhythm: Sinus tachycardia Intervals: Normal RI, Other (multiple pvcs) Ischemia: Other (nonspecific lateral t abnormalities) - Labs Labs: Laboratory Tests 07/13/23 07/13/23 07/13/23 21:34 21:34 21:40 WBC 18.6 H RBC 3.48 L Hgb 10.0 L Hct 32.2 L MCV 92.5 MCH 28.7 MCHC 31.1 L RDW 14.0 Plt Count 307 MPV 8.6 Neut # (Auto) 16.7 H Lymph # (Auto) 1.2 L [place] # (Auto) 0.4 Eos # (Auto) 0.0 Baso # (Auto) 0.0 Absolute Nucleated RBC 0.00 Nucleated RBC % 0.0 Sodium 132 L Potassium 3.8 Chloride 98 L Carbon Dioxide 24 Anion Gap 10.0 BUN 13 Creatinine 0.5 L Estimated GFR (MDRD) 162 Glucose 109 H Calcium 8.6 Magnesium 1.9 Total Bilirubin 0.9 AST 22 ALT 14 Alkaline Phosphatase 56 Total Creatine Kinase 62 Total Protein 5.9 L Albumin 3.3 Globulin 2.6 Albumin/Globulin Ratio 1.3 Lipase < 10 L TSH 0.97 Urine Color YELLOW Urine Clarity HAZY Urine pH 6.0 Ur Specific [place] 1.025 Urine Protein 100 H Urine Glucose (UA) NEGATIVE Urine Ketones 40 H Urine Occult Blood SMALL H Urine Nitrite NEGATIVE Urine Bilirubin NEGATIVE Urine Urobilinogen >=8.0 H Ur Leukocyte Esterase TRACE H Urine RBC 6-10 H Urine WBC 6-10 H Ur Squamous Epith Cells NONE SEEN Urine Bacteria Few Urine Mucus Few Strands Urine Yeast PRESENT Ur Microscopic Review INDICATED Urine Culture Comments INDICATED Salicylates < 1.5 Urine Opiates Screen Ur Buprenorphine Scrn Ur Oxycodone Screen Urine Methadone Screen Acetaminophen 0.1 Ur Barbiturates Screen Ur Tricyclics Screen Ur Phencyclidine Scrn Ur Amphetamine Screen U Methamphetamines Scrn U Benzodiazepines Scrn Urine Cocaine Screen U Cannabinoids Screen Ur Drug Screen Comment Ethyl Alcohol < 10.0 07/13/23 21:40 WBC RBC Hgb Hct MCV MCH MCHC RDW Plt Count MPV Neut # (Auto) Lymph # (Auto) [place] # (Auto) Eos # (Auto) Baso # (Auto) Absolute Nucleated RBC Nucleated RBC % Sodium Potassium Chloride Carbon Dioxide Anion Gap BUN Creatinine Estimated GFR (MDRD) Glucose Calcium Magnesium Total Bilirubin AST ALT Alkaline Phosphatase Total Creatine Kinase Total Protein Albumin Globulin Albumin/Globulin Ratio Lipase TSH Urine Color Urine Clarity Urine pH Ur Specific [place] Urine Protein Urine Glucose (UA) Urine Ketones Urine Occult Blood Urine Nitrite Urine Bilirubin Urine Urobilinogen Ur Leukocyte Esterase Urine RBC Urine WBC Ur Squamous Epith Cells Urine Bacteria Urine Mucus Urine Yeast Ur Microscopic Review Urine Culture Comments Salicylates Urine Opiates Screen POSITIVE H Ur Buprenorphine Scrn NEGATIVE Ur Oxycodone Screen POSITIVE H Urine Methadone Screen NEGATIVE Acetaminophen Ur Barbiturates Screen NEGATIVE Ur Tricyclics Screen NEGATIVE Ur Phencyclidine Scrn NEGATIVE Ur Amphetamine Screen NEGATIVE U Methamphetamines Scrn NEGATIVE U Benzodiazepines Scrn NEGATIVE Urine Cocaine Screen NEGATIVE U Cannabinoids Screen NEGATIVE Ur Drug Screen Comment CUTOFF CONC BELOW: Ethyl Alcohol PD Medical Decision Making - ED course ED course: 77yM presented to the ED with recent diagnosis of pneumonia, then found to be unresponsive by roommate tonight. Patient is not protecting airway properly on arrival and preparations were made for intubation. Attempted to contact family for collateral info/consent. d/w daughter Mercy who lives in [place] - she is next of kin and was informed of his severe AMS and tachycardia. she states patient is DNR/DNI and per his wishes we should not go forward with intubation or cpr. Daughter states it is possible he has been crushing up his morphine and hydrocodone pills. Patient was a heavy drinker and stopped drinking recently. She states it is in keeping with his wishes to keep him comfortable and palliate his symptoms. 11:45pm - patient now opening eyes, looking around at his friend and neighbor who he now lives with. He attempted to speak but was indiscernable. Friend is a former EMT and states he is sure patient had no access to narcotics in interim between his last ED visit and now. 2:15am - patient now speaking in short sentences with staff assistant, stating he has pain all over. Plan to continue to monitor and admit when bed becomes available. CT head uncovered no intracranial bleeding. CTA chest showed no PE but BL pneumonia and pleural effusions. antibiotics administered. Will endorse to incoming daytime ED MD at 7am shift change for admission pending bed. Departure - Departure Clinical Impression: Pneumonia, Unresponsiveness Condition: Fair Forms: PCP List
[2023-07-13 21:49] LABS: BILIRUBIN,URINE NEGATIVE (NEGATIVE); GLUCOSE, URINE (UA) NEGATIVE (NEGATIVE); KETONES,URINE (UA) 40 mg/dL (NEGATIVE); LEUKOCYTE ESTERASE, URINE TRACE (NEGATIVE); NITRITE,URINE NEGATIVE (NEGATIVE); OCCULT BLOOD,URINE SMALL (NEGATIVE); PROTEIN,URINE 100 mg/dL (NEGATIVE); UROBILINOGEN,URINE >=8.0 E.U./dL (NORMAL)
[2023-07-13 21:51] LABS: ACETAMINOPHEN 0.1 ug/mL; ALBUMIN 3.3 g/dL (3.2-5.5); ALBUMIN/GLOBULIN RATIO 1.3 (1.0-2.2); ALKALINE PHOSPHATASE 56 IU/L (42-121); ALT ALANINE AMINOTRANSFERASE 14 IU/L (10-60); AST ASPARTATE AMINOTRANSFERASE 22 IU/L (10-42); BILIRUBIN,TOTAL 0.9 mg/dL (0.2-1.0); BUN - BLOOD UREA NITROGEN 13 mg/dL (6-20); CALCIUM 8.6 mg/dL (8.5-10.3); CARBON DIOXIDE - CO2 24 mmol/L (21-32); CHLORIDE 98 mmol/L (101-111); CK- CREATINE KINASE 62 IU/L (30-223); CREATININE 0.5 mg/dL (0.6-1.3); ETOH - ETHANOL < 10.0 mg/dL; GFR - MDRD 162 (>89); GLUCOSE 109 mg/dL (74-104); MAGNESIUM 1.9 mg/dL (1.7-2.3); POTASSIUM 3.8 mmol/L (3.5-4.5); SODIUM 132 mmol/L (135-145); TOTAL PROTEIN 5.9 g/dL (6.4-8.9)
[2023-07-13 21:51] LABS: CLARITY,URINE HAZY (CLEAR)
[2023-07-13 21:52] LABS: LIPASE < 10 U/L (11-82); SALICYLATE < 1.5 mg/dL
[2023-07-13 21:58] LABS: BACTERIA,URINE Few /HPF (None Seen); MUCUS,URINE Few Strands; SQUAMOUS EPITHELIAL CELL,UR NONE SEEN (<= Few); YEAST,URINE PRESENT
[2023-07-13] MEDS ORDERED: SODIUM CHLORIDE 0.9% 1,000 ML IV ONE (22:06)
[2023-07-13] MEDS ORDERED: NALOXONE 0.4 MG/ML VIAL ONE ×2 (22:10→22:12)
[2023-07-13] MEDS ORDERED: ROCURONIUM 50 MG/5 ML VIAL IVP STA (22:18)
[2023-07-13] MEDS ORDERED: ETOMIDATE 40 MG/20 ML VIAL IVP STA (22:19)
[2023-07-13] MEDS ORDERED: fentaNYL 2,500 MCG in SODIUM CHLORIDE 0.9% 200 ML IV STA (22:19)
[2023-07-13] MEDS: iohexoL-300 100 ML VIAL IVP ONE ×2 (22:20→22:24)
[2023-07-13 22:37] LABS: THYROID STIMULATING HORMONE 0.97 uIU/mL (0.34-5.60)
--- NOTE | 2023-07-13 23:00 | CT Report ---
PROCEDURE: HEAD WO INDICATIONS: ams TECHNIQUE: Noncontrast 4.5 mm thick angled axial sections acquired from the foramen magnum to the vertex. For r adiation dose reduction, the following was used: automated exposure control, adjustment of mA and/or kV according to patient size. COMPARISON: None. FINDINGS: Image quality: Moderate motion CSF spaces: Basal cisterns are patent. Lateral ventricles are symmetric. Volume: Vascular calcifications. Periventricular white matter disease is commonly seen with chronic m icroangiopathy. Volume loss is present. These findings are moderate. Brain: No intracranial hemorrhage. Desai-white differentiation is grossly maintained. Craniofacial structures: No displaced fracture. Sinuses are clear. Orbits are intact. IMPRESSION: No large hemorrhage or gross loss of desai-white differentiation. Motion degraded CT. Reviewed by: Grant Lindsay MD on 07/13/2023 10:58 PM PST Approved by: Grant Lindsay MD on 07/13/2023 10:58 PM [facility] Station ID: [id number]
[2023-07-13 23:02] LABS: AMPHETAMINE SCREEN,URINE NEGATIVE (NEGATIVE); BARBITURATE SCREEN,UR NEGATIVE (NEGATIVE); BENZODIAZEPINES SCREEN, URINE NEGATIVE (NEGATIVE); COCAINE SCREEN URINE NEGATIVE (NEGATIVE); METHADONE SCREEN, URINE NEGATIVE (NEGATIVE); METHAMPHETAMINES SCREEN, URINE NEGATIVE (NEGATIVE); OPIATE SCREEN, URINE POSITIVE (NEGATIVE); THC CANNABINOID SCREEN, URINE NEGATIVE (NEGATIVE); TRICYCLIC ANTIDEPRESSANT,URINE NEGATIVE (NEGATIVE)
[2023-07-13 23:03] LABS: BUPRENORPHINE SCREEN, URINE NEGATIVE (NEGATIVE); OXYCODONE SCREEN, URINE POSITIVE (NEGATIVE)
--- NOTE | 2023-07-13 23:17 | CT Report ---
PROCEDURE: CT Angio Head/Neck INDICATIONS: altered mental TECHNIQUE: CT angiogram images were obtained of the head and neck with IV contrast. Multiplanar refor mats and maximum intensity projection images were obtained. Contrast: IV contrast. COMPARISON: Same-day head CT FINDINGS: Image quality: Mild to moderate motion artifact. Head angiography Anterior circulation: ICAs: Moderate bilateral cavernous carotid calcifications. ACAs: There is some intracranial irregularity. MCAs: normal and symmetric. There is some intracranial irregularity. 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 CCAs: no stenosis, occlusion, or aneurysm. ICA origins (by NASCET criteria): Calcifications narrow the carotid bulbs bilaterally, about 50% narr owing is seen. ICAs: no stenosis, occlusion or aneurysm. ECAs: Calcifications seen at the origins. Vertebral arteries: Relatively diminutive right vertebral artery is likely congenital. The vertebral arteries at the upper cervical segment is very poorly visualized. Soft tissues: no significant mass, aneurysm, or lymphadenopathy Lung apices: Advanced emphysematous changes and scarring partially seen in the lungs. Bones: Degenerative changes. Height loss of multiple vertebral bodies are age-indeterminate and upper thoracic spine, age-indeterminate, exaggerated cervicothoracic kyphosis. IMPRESSION: Motion degraded CT. Mild and moderate areas of atherosclerotic narrowing, without severe stenosis or large vessel occlusi on identified. If there is high concern for infarct, consider MRI. Intracranial arterial irregularity likely intracranial atherosclerosis. Other incidental and likely nonacute findings above. Reviewed by: Grant Lindsay MD on 07/13/2023 11:16 PM PST Approved by: Grant Lindsay MD on 07/13/2023 11:16 PM PST Station ID: [id number]
[2023-07-14] MEDS: iohexoL-300 100 ML VIAL IVP ONE (01:50)
[2023-07-14] MEDS ORDERED: AZITHROMYCIN INJ 500 MG in SODIUM CHLORIDE 0.9% 250 ML IV STA (04:03)
[2023-07-14] MEDS ORDERED: cefTRIAXone 2 GM in SODIUM CHLORIDE 0.9% MINIBAG 100 ML IV STA (04:03)
[2023-07-14] MEDS ORDERED: cefTRIAXone 2 GM VIAL ONE (04:20)
[2023-07-14 06:25] LABS: B. PARAPERTUSSIS- RESP PCR PAN NOT DETECTED; B. PERTUSSIS- RESP PCR PANEL NOT DETECTED; C. PNEUMONIAE- RESP PCR PANEL NOT DETECTED; CORONAVIRUS 229E-RESP PCR NOT DETECTED; CORONAVIRUS HKU1-RESP PCR NOT DETECTED; CORONAVIRUS NL63-RESP PCR NOT DETECTED; CORONAVIRUS OC43-RESP PCR NOT DETECTED; HUMAN METAPNEUMOVIRUS NOT DETECTED; INFLUENZA A- RESP PCR PANEL NOT DETECTED; INFLUENZA B - RESP PCR PANEL NOT DETECTED; M. PNEUMONIAE- RESP PCR PANEL NOT DETECTED; PARAINFLUENZA VIRUS 1 NOT DETECTED; PARAINFLUENZA VIRUS 2 NOT DETECTED; PARAINFLUENZA VIRUS 3 NOT DETECTED; PARAINFLUENZA VIRUS 4 NOT DETECTED; RHINOVIRUS/ENTEROVIRUS NOT DETECTED; RSV- RESP PCR PANEL NOT DETECTED; SARS-CoV-2 -RESP PCR PANEL NOT DETECTED
[2023-07-14] MEDS ORDERED: IPRATROPIUM/ALBUTEROL 3 ML NEB INH STA ×2 (10:29→10:48)
--- NOTE | 2023-07-14 10:48 | CT Report ---
PROCEDURE: ABDOMEN/PELVIS W INDICATIONS: ams, tachycardia CONTRAST: Omni 300 100ml TECHNIQUE: After the administration of intravenous contrast, 5 mm thick sections acquired from the diaphragms to the symphysis. 5 mm thick coronal and sagittal reformats were acquired. For radiation dose reducti on, the following was used: automated exposure control, adjustment of mA and/or kV according to ingrid ent size. COMPARISON: None. FINDINGS: Image quality: Excellent. Lung bases and heart: Please see separate chest CT report. Liver: No solid mass. Gallbladder and biliary tree: Spleen: No splenomegaly. Pancreas: No pancreatic ductal dilation. Adrenals: No adrenal nodule. Kidneys and ureters: No hydronephrosis. No renal cystic lesion which requires follow up. No solid mas s. Bowel and peritoneum: No bowel distension. No pathologic free fluid. There is a moderate amount stool in colon. Lymph nodes: No central or retroperitoneal adenopathy. Vessels: No infrarenal aortic aneurysm. PELVIS Reproductive organs: Unremarkable. Bladder: There is a Garcia catheter within the inner bladder. Air in the bladder lumen is likely iatro genic. No abnormal wall thickening, accounting for underdistension. Pelvic lymph nodes: No pelvic adenopathy by size criteria. Bones: Abnormal appearance of the right iliac crest. Moderate levoscoliosis. Moderate to severe degen erative changes in lumbar spine. There is moderate to severe central canal stenosis at L3-L4 and L4-L 5. Other: No significant ventral or inguinal hernia. IMPRESSION: 1. No acute abnormality seen abdomen or pelvis. 2. Moderate atherosclerosis. 3. A moderate amount stool in colon. 4. Abnormal appearance of the right iliac crest, which may be posttraumatic in nature. Recommend clin ical correlation. If there is personal history of cancer, consider whole body bone scan. 5. Please see separate CT chest angiogram report. No significant discrepancy with the preliminary interpretation. Reviewed by: Denzel Montanez MD on 07/14/2023 10:47 AM PST Approved by: Denzel Montanez MD on 07/14/2023 10:47 AM PST Station ID: [id number]
--- NOTE | 2023-07-14 10:52 | CT Report ---
PROCEDURE: ANGIO CHEST W/WO INDICATIONS: soa, history of recent pneumonia CONTRAST: Omni 300 100ml TECHNIQUE: After the administration of intravenous contrast, 2 mm axial images were acquired from the pulmonary apices to the posterior costophrenic angles during the arterial phase. In addition, 1 mm lung kernel and 5 mm soft tissue kernel reconstructions were performed. 3-dimensional coronal oblique maximum int ensity projection (MIP) reformats, 8 mm axial MIP, and 5 mm coronal and sagittal MPR reformats were t hen performed through the thorax. For radiation dose reduction, the following was used: automated exp osure control, adjustment of mA and/or kV according to patient size. COMPARISON: CT chest anterior chest, 05/21/2023. FINDINGS: Image quality: Suboptimal opacification of central pulmonary arteries. Large vessels: There are filling defects involving the left upper lobe posterior segmental artery, marilee th lower lobe segmental arteries, consistent with pulmonary emboli. No evidence of acute aortic syndrome or aortic aneurysm. Lungs and pleura: Bilateral subpleural septal thickening and pulmonary fibrosis. No consolidation. No pleural effusions. No pneumothorax. No suspicious pulmonary nodules which require follow up. Mediastinum: Heart size is moderately increased. Moderate coronary calcification. RV/LV ratio less th an 1. No pericardial effusion. No large vessel abnormality. No mediastinal adenopathy by size criteri a. Chest wall and lower neck: Thyroid is unremarkable. No axillary or supraclavicular adenopathy by size . Bones: No aggressive osseous abnormality. Upper Abdomen: Unremarkable. IMPRESSION: 1. Somewhat limited examination with suboptimal opacification of central pulmonary arteries. There ar e findings compatible with bilateral pulmonary embolism. No CT findings to suggest right heart strain . 2. Subpleural septal thickening and pulmonary fibrosis. 3. Small pleural effusions bilaterally. 4. Moderate coronary artery atherosclerosis. There is a discrepancy with the preliminary report. The result was discussed with Dr. Duncan in the ER prior to finalization of the dictation. Reviewed by: Denzel Montanez MD on 07/14/2023 10:50 AM PST Approved by: Denzel Montanez MD on 07/14/2023 10:50 AM PST Station ID: [id number]
[2023-07-14] MEDS ORDERED: ENOXAPARIN 80 MG/0.8 ML SYRINGE SUBQ STA (10:58)
[2023-07-14] MEDS ORDERED: MORPHINE ER 15 MG TABLET PO STA (14:08)
[2023-07-14] MEDS ORDERED: oxyCODONE 30 MG TABLET PO STA (14:09)
[2023-07-14] MEDS ORDERED: HYDROmorphone 1 MG/ML CARPUJECT IVP STA (14:09)
[2023-07-14] MEDS ORDERED: IPRATROPIUM/ALBUTEROL 3 ML NEB INH SCH (14:29)
--- NOTE | 2023-07-14 14:34 | ED Physician Documentation ---
ED Addendum - Addendum Addendum: 07/14/23 14:30 The patient has remained stable from change of shift. He is alert and conversant. He is having still generalized pains. He is having pain with breathing. He feels short of breath. His oxygenation is adequate on the supplemental nasal cannula. I did receive a call from [facility] radiology and the over read from the nighttime CT scan that had initially said no pulmonary emboli is now being read as segmental emboli on both sides. No saddle embolus. No signs of heart strain. This was called to me by the radiologist at 1035. I added Lovenox injection at 1 and half milligrams per kilogram for the patient. I did talk with the hospitalist Dr. Davenport who agrees to have the patient in the hospital for further care of his general weakness, pneumonia and now diagnosed pulmonary emboli. This diagnosis can fit with his episode of altered mentation and trouble breathing last night. The initial CT report earlier had said no emboli. The patient remained stable. He is on high-dose pain medication at home with extended release morphine 15 mg twice a day and oxycodone 30 mg tablets 3-4 times daily. I wrote for these medications along with 1 of Dilaudid here. I also gave a DuoNeb earlier this morning and will write for another dose now to maintain good respiratory tidal volume and clearing of his wheezing. He would be doing these at home. Disposition: The patient is admitted to the hospital in stable condition Diagnoses: 1. Altered mental status event, improved 2. Acute pneumonia 3. Hypoxia 4. Acute pulmonary emboli 5. Chronic pains 6. Chronic lung disease
[2023-07-14] MEDS ORDERED: ONDANSETRON ODT 4 MG TABLET TL PRN (16:16)
[2023-07-14] MEDS ORDERED: SODIUM CHLORIDE FLUSH 0.9% 10 ML SYRINGE IVP PRN (16:16)
[2023-07-14] MEDS ORDERED: ONDANSETRON 4 MG/2 ML VIAL IVP PRN (16:16)
[2023-07-14] MEDS ORDERED: PROCHLORPERAZINE 10 MG/2 ML VIAL IVP PRN (16:16)
[2023-07-14] MEDS ORDERED: oxyCODONE 30 MG TABLET PO PRN (16:52)
[2023-07-14] MEDS ORDERED: FORMOTEROL FUMARATE NEB 20 MCG/2 ML INH STA (16:53)
[2023-07-14] MEDS ORDERED: ENOXAPARIN 40 MG/0.4 ML SYRINGE SUBQ SCH (17:00)
[2023-07-14] MEDS ORDERED: SODIUM CHLORIDE 0.9% 1,000 ML IV STA (17:31)
[2023-07-14] MEDS: SODIUM CHLORIDE FLUSH 0.9% 10 ML SYRINGE IVP SCH (17:34)
[2023-07-14] MEDS: SODIUM CHLORIDE 0.9% 1,000 ML IV SCH (17:36)
[2023-07-14] MEDS: ALBUTEROL NEB 2.5 MG/3 ML INH SCH ×2 (17:41→21:15)
[2023-07-14] MEDS: SACCHAROMYCES BOULARDII 250 MG CAPSULE PO SCH (17:44)
[2023-07-14] MEDS: levoFLOXacin 750 MG/150 ML 750 MG/150 ML BAG IV SCH (17:44)
[2023-07-14] MEDS: BUDESONIDE 0.5 MG/2 ML NEB INH SCH (17:49)
--- NOTE | 2023-07-14 17:57 | HISTORY & PHYSICAL EXAMINATION ---
Chief Complaint - Chief Complaint Chief Complaint: unresponsive History of Present Illness - Admitted From Admitted From:: home - History Obtained From Records Reviewed: [facility] History obtained from: [facility] Exam Limitations: AMS - History of Present Illness HPI Comment/Other: 77yM presents with a history of COPD is seen at the ED after being seen for pneumonia two days prior with cough/soa. He was discharged home with antibiotics. After patient went home, his roommate witnessed him reporting chest pain and heavy breathing before becoming unresponsive. His roommate then called 911 pateint arrived to the ED with GCS 5, his current GCS is 13. he did not respond to 2mg narcan. BP ranges from 124-145/75-105. HR 127-69. His O2 sat is 96-99% on RA. His X ray show mild edema or pneumonia. His Head CT show no hemorrhage or plaza white differentiation. angiograph CT shows mid and moderate atherosclerotic narrowing without severe stenosis or large vessel occlusion. Abdominal CT shows no abnormalities. Chest/Thorax CTA show bilateral pulm embolism, subpleural septal thickening, pulmonary fibrosis, bilateral pleural effusions, and coronary artery atherosclerosis. He is showing AMS with disorientation to time and place but is able to stay awake and answering questions appropriately while asking conversing back. He has difficulties remembering how he got to the hospital and his daily activities at home. He voiced he has no family members but according to the ED notes he has a daughter in [place] who says he is DNR and thus no intubation was made for the patient. he was given Ceftriaxone started on IV normal saline. History - Past Medical History Cardiovascular: reports: Hypertension Respiratory: reports: Asthma, COPD Neuro: reports: None Endocrine/Autoimmune: reports: None GI: reports: None : reports: None HEENT: reports: None Psych: reports: None Musculoskeletal: reports: Osteoarthritis Derm: reports: None MRSA Hx?: No - Family & Social History Family History: Mother: , Father: Family History Comment/Other: He is unable to recall any alive family members. Reports mom and dad but does not know how. ED notes he has a daughter Mercy who lives in [place]. 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 He has 2 cats and 1 dog. He says he cooks for himself but does cannot recalled what he can cook. He lives with a neighbor according to the ED notes - Substance History Use: Uses substance without health or social issues: NONE, Tobacco (quit 30 years haley) Abuse: Recurrent use of substance despite neg consequences: Alcohol (he makes his own wine but does not drink often) Dependence: Experiences withdrawal or developed tolerances: NONE - POLST Patient has POLST: No POLST Status: DNR (according to daughter in [place]) Meds/Allgy - Home Medications Home Medications: Ambulatory Orders Medication Instructions Recorded Confirmed Albuterol 2.5 mg INH Q4H PRN 04/14/13 07/14/23 Albuterol Sulf [Ventolin Hfa 1 - 2 puffs INH Q4HR PRN 07/13/23 07/14/23 Inhaler] Aspirin EC [Ecotrin] 81 mg PO DAILY 07/13/23 07/14/23 Atorvastatin [Lipitor] 20 mg PO QPM 07/13/23 07/14/23 Budesonide/Formoterol Fumarate 2 puffs IH BID 07/13/23 07/14/23 [Symbicort 160-4.5 Mcg Inhaler] Furosemide [Lasix] 40 mg PO DAILY 07/13/23 07/14/23 Gabapentin [Neurontin] 300 mg PO QPM 07/13/23 07/14/23 Ipratropium [Atrovent] 0.5 mg INH QID 20 Days #200 ml 07/13/23 07/14/23 Lisinopril [Zestril] 20 mg PO DAILY 07/13/23 07/14/23 Morphine Sulfate [Ms Contin] 15 mg PO BID 07/13/23 07/14/23 Tamsulosin [Flomax] 0.4 mg PO DAILY 07/13/23 07/14/23 oxyCODONE [Roxicodone] 30 mg ORAL QID 07/13/23 07/14/23 - Allergies Allergies/Adverse Reactions: Allergies Allergy/AdvReac Type Severity Reaction Status Date / Time No Known Drug Allergies Allergy Verified 07/13/23 21:59 Review of Systems - Constitutional Constitutional: reports: Fatigue, Weakness. denies: Fever, Chills, Malaise - Eyes Eyes: denies: Pain - Ears, Nose & Throat Ears, Nose & Throat: reports: Sore throat, Hoarseness, Other (odynophagia). denies: Ear pain, Hearing loss, Nasal pain, Nosebleeds - Cardiovascular Cariovascular: reports: Irregular heart rate, Edema. denies: Chest pain, Lightheadedness, Syncope - Respiratory Respiratory: reports: Cough, Wheezing. denies: SOB at rest - Gastrointestinal Gastrointestinal: denies: Abdominal pain, Abdominal distention, Constipation, Diarrhea, Nausea, Vomiting - Genitourinary Genitourinary: denies: Dysuria - Musculoskeletal Musculoskeletal: denies: Muscle pain - Integumentary Integumentary: denies: Rash - Neurological Neurological: reports: General weakness, Headache (right side headache increasing when he swallows), Memory problems, Slurred speech. denies: Dizziness - Endocrine Endocrine: reports: Polydypsia, Polyphagia - Hematologic/Lymphatic Hematologic/Lymphatic: reports: Bruising Prior Level of Functionality: describes himself as becoming more of a "cripple". He says he moves around his home very slowly in order to get from place to place. When asked how he cooks for himself or what he cooks for himself he says he cannot remember. Exam - Vital Signs Vital Signs: Vital Signs x48h Temp Pulse Resp BP Pulse Ox O2 Flow Rate 07/14/23 17:44 69 18 07/14/23 17:08 36.9 C 113 H 18 121/80 99 07/14/23 16:35 111 H 19 116/76 99 07/14/23 15:30 118 H 22 129/78 97 07/14/23 15:18 89 17 4 07/14/23 15:00 114 H 20 112/68 98 07/14/23 14:30 115 H 22 120/69 96 07/14/23 14:16 111 H 18 129/82 H 96 07/14/23 14:00 110 H 22 129/82 H 98 07/14/23 13:30 120 H 24 139/85 H 96 07/14/23 13:00 122 H 15 140/93 H 94 07/14/23 12:30 108 H 20 123/91 H 90 L 07/14/23 12:00 106 H 18 135/83 H 91 L 07/14/23 11:30 108 H 20 122/84 H 97 07/14/23 11:01 78 19 3 07/14/23 11:00 111 H 22 137/91 H 98 2 07/14/23 10:30 124 H 26 H 144/95 H 93 2 07/14/23 10:00 127 H 29 H 147/92 H 98 - Physical Exam General Appearance: positive: Moderate distress, Lethargic, Other (elderly man with uncombed hair with poor dental hygiene in a hospital gown. He awakes to questioning but is lethargic with a weak voice. His arms are covered in bruises and has kyphosis with cachexia. he has a pony tair and earring. His skin is dry and his arms and hands are dirty) Eyes Bilateral: positive: PERRL, EOMI, No scleral icterus ENT: positive: Dry mucous membranes (chapped lips and cracked tongue) Neck: positive: Nml inspection. negative: Swelling/bruising, Tracheal deviation Respiratory: positive: Rales, Rhonchi, Other (lung sounds difficult to hear as patient cannot lift himself forward and moaning. He is gasping for air) Cardiovascular: positive: Irregularly irregular, Tachycardia Peripheral Pulses: positive: 2+ Abdomen: positive: Non-tender, No organomegaly, Nml bowel sounds Skin: positive: Dry, Other (bruises along arm.). negative: Diaphoresis, Laceration (cm) Extremities: positive: Non-tender, Pedal edema (swollen right leg 2+ edema). negative: Full ROM, Nml appearance Neurologic/Psychiatric: positive: Sensation nml, Disoriented to place, Disoriented to time, Weakness, Other (cannot remember what happened to cause him to be at the hospital and cannot recognize he's at the hospital). negative: Oriented x3, CN's nml (2-12), Motor nml (LE and UE show weakness and reduced ROM but is able to provide resistance), Facial droop, Slurred/abnml speech (quiet speech), Depressed mood/affect Conclusion/Plan - Problem List (1) Syncope Conclusion/Plan: related to COPD exacerbation from PE and PNA leading to hypoxia treatment listed below (2) Shortness of breath Plan/conclusion History of COPD and asthma. He is 96-99% on RA showing no hypoxia Still gasping for air and showing signs of cough Chest/Thorax CTA show bilateral pulm embolism, subpleural septal thickening, pulmonary fibrosis, bilateral pleural effusions, and coronary artery atherosclerosis. Most likely from Pulmonary embolism and pneumonia which lead to COPD exacerbation. Plan: given ceftriaxone and Budesonide monitor CBC or O2 sat (3) Pneumonia Plan/conclusion given ceftriaxone and monitor CBC or O2 sat (4) Pulmonary Emboli Plan/conclusion Stopped Lovenox and initiate eliquis monitor O2 sat (5) AMS Plan/conclusion patient disoriented to place and time but is able to orient to self GSC score has steadily improved in ED 5->[address] show no hemorrhage or lpaza white differentiation. angiograph CT shows mid and moderate atherosclerotic narrowing without severe stenosis or large vessel occlusion. Plan Continue IV fluids and electrolyte rehydration. treat hypoxia as listed above monitor mental status - Lab Results Fish Bones: 07/13/23 21:34 07/13/23 21:34
[2023-07-14] MEDS ORDERED: BUDESONIDE 0.5 MG/2 ML NEB INH SCH (19:00)
[2023-07-14] MEDS: metroNIDAZOLE 500 MG/100 ML 500 MG/100 ML BAG IV SCH (19:24)
[2023-07-14] MEDS: IPRATROPIUM/ALBUTEROL 3 ML NEB INH SCH (19:40)
[2023-07-14] MEDS: GABAPENTIN 300 MG CAPSULE PO SCH (20:44)
[2023-07-14] MEDS: APIXABAN 5 MG TABLET PO SCH (20:44)
[2023-07-14] MEDS: ATORVASTATIN 10 MG TABLET PO SCH (20:49)
[2023-07-14] MEDS: MORPHINE ER 15 MG TABLET PO SCH (20:49)
[2023-07-14] MEDS: oxyCODONE 5 MG TABLET PO PRN (21:50)
[2023-07-15] MEDS: SODIUM CHLORIDE FLUSH 0.9% 10 ML SYRINGE IVP SCH ×4 (01:13→23:54)
[2023-07-15] MEDS: ALBUTEROL NEB 2.5 MG/3 ML INH SCH ×2 (02:49→06:21)
[2023-07-15] MEDS: metroNIDAZOLE 500 MG/100 ML 500 MG/100 ML BAG IV SCH ×3 (02:50→16:52)
[2023-07-15] MEDS: oxyCODONE 5 MG TABLET PO PRN ×3 (03:06→17:03)
[2023-07-15] MEDS: SODIUM CHLORIDE 0.9% 1,000 ML IV SCH ×3 (03:52→23:53)
[2023-07-15] MEDS ORDERED: INSULIN REGULAR HUMAN 300 UNIT/3 ML VIAL IVP STA (05:03)
[2023-07-15 05:40] LABS: BASOPHILS % (AUTO) 0.1 %; EOSINOPHILS # (AUTO) 0.1 10^3/uL (0.0-0.7); EOSINOPHILS % (AUTO) 0.5 %; HCT - HEMATOCRIT 28.6 % (42.0-52.0); LYMPHOCYTES # (AUTO) 1.6 10^3/uL (1.5-3.5); LYMPHOCYTES % (AUTO) 11.8 %; MEAN CORPUSCULAR HEMOGLOBIN 28.2 pg (27.0-31.0); MEAN CORPUSCULAR HGB CONC 31.5 g/dL (32.0-36.0); MEAN CORPUSCULAR VOLUME 89.7 fL (80.0-94.0); MEAN PLATELET VOLUME 8.9 fL (7.4-11.4); MONOCYTES # (AUTO) 0.8 10^3/uL (0.0-1.0); MONOCYTES % (AUTO) 5.7 %; NEUTROPHILS # (AUTO) 10.8 10^3/uL (1.5-6.6); NEUTROPHILS % (AUTO) 81.3 %; PLT - PLATELET COUNT 300 10^3/uL (130-450); RED BLOOD COUNT 3.19 10^6/uL (4.70-6.10); RED CELL DISTRIBUTION WIDTH 14.2 % (12.0-15.0); WHITE BLOOD COUNT 13.2 x10^3/uL (4.8-10.8)
[2023-07-15 06:02] LABS: CREATININE 0.5 mg/dL (0.6-1.3); POTASSIUM 3.6 mmol/L (3.5-4.5)
[2023-07-15] MEDS: BUDESONIDE 0.5 MG/2 ML NEB INH SCH ×2 (06:20→18:50)
[2023-07-15] MEDS: IPRATROPIUM/ALBUTEROL 3 ML NEB INH SCH (06:21)
[2023-07-15] MEDS: APIXABAN 5 MG TABLET PO SCH ×2 (08:04→21:57)
[2023-07-15] MEDS: SACCHAROMYCES BOULARDII 250 MG CAPSULE PO SCH ×2 (08:04→16:55)
[2023-07-15] MEDS: lisinopriL 20 MG TABLET PO SCH (08:47)
[2023-07-15] MEDS: TAMSULOSIN 0.4 MG CAPSULE PO SCH (08:47)
[2023-07-15] MEDS: MORPHINE ER 15 MG TABLET PO SCH ×2 (08:48→21:58)
--- NOTE | 2023-07-15 10:34 | PHARMACY PROGRESS NOTE ---
- Best Possible Medication History Admit Date and Time: 07/14/23 1616 Processed by: Pharmacy Medication History completed: Yes Patient Interview: Completed Secondary Source(s): Physician records, Pharmacy records, Insurance records As the person ultimately responsible for medication therapy, providers are able to order a medication from an existing home medication list in [facility] via the "Reconcile Routine" prior to Confirmation of that medication by student support counselor. Such practice is discouraged except when the physician, in their clinical judgment, deems that a medical need exists for a medication without regard to previous use.
[2023-07-15] MEDS: BENZOCAINE/MENTHOL LOZENGE MM PRN ×3 (12:03→22:29)
[2023-07-15] MEDS: ACETAMINOPHEN 325 MG TABLET PO PRN ×2 (12:03→17:04)
--- NOTE | 2023-07-15 13:21 | PROVIDER PROGRESS NOTE ---
Progress Note July 15, 2023 1:17 PM I ask if he is improved, and he says he has. But more with regards to mentation. He says he does not remember much about yesterday when he first came into the hospital ER. As the day went on he was more more alert and understood that he was there because of an event. Even when I saw him yesterday he said he barely remembers meeting me. Today he feels like he is at baseline. He knows where he is. He knows why he is here. He keeps on telling me that he cannot believe that he had a blood clot. He does not have much appetite and only wants to drink the coffee with cream. Does not want breakfast even after I warmed up form. His pain is always there. But it is not his throat pain or chest pain. He says it is just a diffuse ache that hurts all over. That is why he takes the MS Contin and the oxycodone. Exam: Temperature is 37. Heart rate 105. Blood pressure 137/94. Respirations 18. 97% on room air. His overall pain with regards to his body is a 7 out of a 10. Cachectic, kyphotic elderly gentleman with ponytail in his long hair, and they commented on his earrings. I think they are very cullen. Speech is slow, sometimes slurred but I think is because of his teeth. Neck is supple Lungs are clear but is difficult to examine him because I need to have him sit up. He needs me to help him sit up, and his kyphosis makes it hard to keep him upright. But no increased respiratory effort. No use use of accessory muscles. Tachycardic regular rate and rhythm. Systolic ejection murmur at the apex. Abdomen is soft, and protuberant because of the kyphosis. Normal bowel sounds. He tells me that his epigastrium just feels "tight" like a band around his waist. But there is no rebound, guarding, and he had a bowel movement today. Extremities have knobby osteoarthritis deformities. The second toe of both feet are covered in bandages that are old, dirty. He says that they are the same o kin that were put on but he cannot remember who put them on. The toes are dark, discolored. Hammertoe in both of them. Lab: Sodium 134. Potassium, chloride, CO2, BUN normal. Creatinine is low at 0.5. In looking at his lean body mass deficit, his BUN and creatinine echo how cachectic he is. White cell count is 13.2. It is come down from 18.8 so he is responding to antibiotics. Hemoglobin is 9, down from 10.0. Platelets are 300. He has chronic anemia in the EMR dating to 2012. Unchanged. Blood cultures are negative after 1 day Urine culture is growing gram-negative rods Conclusion/Plan - Problem List (1) Syncope Conclusion/Plan: related to COPD exacerbation from PE and PNA leading to hypoxia He has improved in mentation from yesterday to today. He is much more conversational. Speech is much more lucid and understandable. But I do not know his baseline. treatment listed below (2) Shortness of breath Plan/conclusion History of COPD and asthma. Chest x-ray shows scattered pneumonia, and he has had a PE. Amazingly he does not have hypoxia. Yesterday he was still gasping with increased respiratory effort when speaking to us in the ER. By the time he got to [facility] and today, he is comfortable, not gasping, and speaking in a normal conversational manner Chest/Thorax CTA show bilateral pulm embolism, subpleural septal thickening, pulmonary fibrosis, bilateral pleural effusions, and coronary artery atherosclerosis. Most likely from Pulmonary embolism and pneumonia which lead to COPD exacerbation. Plan: Continue levaquin, anticoagulation, and Budesonide monitor CBC or O2 sat (3) Pneumonia Plan/conclusion In the outpatient setting he completed 5 days of Augmentin and azithromycin. There is a very good antibiotics to treat a community-acquired pneumonia. I think most of his acute shortness of breath was due to the PE. Pneumonia is mild. But his white cell count is responding. Blood cultures are negative. I had started him on Levaquin because he is already had the Augmentin and azit hromycin. Today is day #2. Plan: Continue for total of 5 to 7 days. Will switch to p.o. tomorrow. (4) Pulmonary Emboli Plan/conclusion On Eliquis 10 mg p.o. twice daily for PE. After 7 days we will go to 5 mg p.o. twice daily.Eliquis is on her formulary. Xarelto is not. (5) Gram negative Bj UTI Patient is already on Levaquin for community-acquired pneumonia. No change in antibiotics. I will wait to see culture results and sensitivities to adjust as needed (5) AMS resolved Plan/conclusion patient disoriented to place and time but Was oriented to self yesterday. Today he is oriented to person, place, city time, and occasionally forgets that he has a PE. He remembers the pneumonia but not the blood clots. GSC scoreImproved in the emergency room from the time he was brought into the time he was admitted. I would say today he is 15. His Head CT show no hemorrhage or plaza white differentiation. angiograph CT shows mid and moderate atherosclerotic narrowing without severe stenosis or large vessel occlusion. Plan He does not have any family he wants me to call. I will have social work make contact with his roommates to establish what his baseline mental status is to make sure he is there. - Lab Results Fish Bones:
[2023-07-15] MEDS: PHENOL THROAT SPRAY 177 ML MM PRN (17:13)
[2023-07-15] MEDS ORDERED: METOPROLOL 5 MG/5 ML VIAL IVP STA (17:42)
[2023-07-15] MEDS: levoFLOXacin 750 MG/150 ML 750 MG/150 ML BAG IV SCH (18:09)
[2023-07-15] MEDS: IPRATROPIUM/ALBUTEROL 3 ML NEB INH PRN (18:50)
[2023-07-15] MEDS: GABAPENTIN 300 MG CAPSULE PO SCH (21:58)
[2023-07-15] MEDS: ATORVASTATIN 10 MG TABLET PO SCH (21:58)
[2023-07-16] MEDS: metroNIDAZOLE 500 MG/100 ML 500 MG/100 ML BAG IV SCH ×3 (01:42→17:04)
[2023-07-16 05:13] LABS: BASOPHILS % (AUTO) 0.2 %; EOSINOPHILS # (AUTO) 0.2 10^3/uL (0.0-0.7); EOSINOPHILS % (AUTO) 1.7 %; HCT - HEMATOCRIT 27.9 % (42.0-52.0); HGB - HEMOGLOBIN 8.9 g/dL (14.0-18.0); LYMPHOCYTES # (AUTO) 1.7 10^3/uL (1.5-3.5); LYMPHOCYTES % (AUTO) 13.9 %; MEAN CORPUSCULAR HEMOGLOBIN 28.3 pg (27.0-31.0); MEAN CORPUSCULAR HGB CONC 31.9 g/dL (32.0-36.0); MEAN CORPUSCULAR VOLUME 88.9 fL (80.0-94.0); MEAN PLATELET VOLUME 8.7 fL (7.4-11.4); MONOCYTES # (AUTO) 0.7 10^3/uL (0.0-1.0); MONOCYTES % (AUTO) 5.7 %; NEUTROPHILS # (AUTO) 9.4 10^3/uL (1.5-6.6); PLT - PLATELET COUNT 269 10^3/uL (130-450); RED BLOOD COUNT 3.14 10^6/uL (4.70-6.10)
[2023-07-16] MEDS: BENZOCAINE/MENTHOL LOZENGE MM PRN ×2 (05:21→22:11)
[2023-07-16] MEDS: ACETAMINOPHEN 325 MG TABLET PO PRN (05:58)
[2023-07-16 06:09] LABS: CALCIUM 7.7 mg/dL (8.5-10.3); CREATININE 0.4 mg/dL (0.6-1.3); POTASSIUM 3.5 mmol/L (3.5-4.5)
[2023-07-16] MEDS: IPRATROPIUM/ALBUTEROL 3 ML NEB INH PRN ×2 (07:03→19:17)
[2023-07-16] MEDS: BUDESONIDE 0.5 MG/2 ML NEB INH SCH ×2 (08:44→19:17)
[2023-07-16] MEDS: MORPHINE ER 15 MG TABLET PO SCH ×2 (09:15→21:54)
[2023-07-16] MEDS: METOPROLOL TARTRATE 25 MG TABLET PO SCH ×2 (09:26→22:06)
[2023-07-16] MEDS: APIXABAN 5 MG TABLET PO SCH ×2 (09:26→22:03)
[2023-07-16] MEDS: TAMSULOSIN 0.4 MG CAPSULE PO SCH (09:28)
[2023-07-16] MEDS: lisinopriL 20 MG TABLET PO SCH (09:29)
[2023-07-16] MEDS: SACCHAROMYCES BOULARDII 250 MG CAPSULE PO SCH ×2 (09:29→17:05)
[2023-07-16] MEDS: SODIUM CHLORIDE FLUSH 0.9% 10 ML SYRINGE IVP SCH ×2 (10:57→17:05)
[2023-07-16] MEDS: SODIUM CHLORIDE 0.9% 1,000 ML IV SCH ×2 (12:52→22:11)
[2023-07-16] MEDS: levoFLOXacin 250 MG TABLET PO SCH (13:08)
[2023-07-16] MEDS: PHENOL THROAT SPRAY 177 ML MM PRN ×4 (13:08→21:56)
[2023-07-16] MEDS: oxyCODONE 5 MG TABLET PO PRN ×2 (13:12→17:47)
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
[2023-07-16] MEDS: metroNIDAZOLE 250 MG TABLET PO SCH (19:40)
[2023-07-16] MEDS: ATORVASTATIN 10 MG TABLET PO SCH (22:05)
[2023-07-16] MEDS: GABAPENTIN 300 MG CAPSULE PO SCH (22:08)
[2023-07-17] MEDS: SODIUM CHLORIDE FLUSH 0.9% 10 ML SYRINGE IVP SCH ×3 (00:40→16:21)
[2023-07-17] MEDS: PHENOL THROAT SPRAY 177 ML MM PRN ×3 (01:26→12:48)
[2023-07-17 06:09] LABS: BASOPHILS % (AUTO) 0.2 %; EOSINOPHILS # (AUTO) 0.2 10^3/uL (0.0-0.7); EOSINOPHILS % (AUTO) 1.7 %; HCT - HEMATOCRIT 27.7 % (42.0-52.0); HGB - HEMOGLOBIN 8.7 g/dL (14.0-18.0); LYMPHOCYTES % (AUTO) 15.7 %; MEAN CORPUSCULAR HEMOGLOBIN 28.3 pg (27.0-31.0); MEAN CORPUSCULAR HGB CONC 31.4 g/dL (32.0-36.0); MEAN CORPUSCULAR VOLUME 90.2 fL (80.0-94.0); MEAN PLATELET VOLUME 9.3 fL (7.4-11.4); MONOCYTES # (AUTO) 0.7 10^3/uL (0.0-1.0); MONOCYTES % (AUTO) 5.8 %; NEUTROPHILS # (AUTO) 9.7 10^3/uL (1.5-6.6); NEUTROPHILS % (AUTO) 76.1 %; PLT - PLATELET COUNT 288 10^3/uL (130-450); RED BLOOD COUNT 3.07 10^6/uL (4.70-6.10); RED CELL DISTRIBUTION WIDTH 14.3 % (12.0-15.0); WHITE BLOOD COUNT 12.7 x10^3/uL (4.8-10.8)
[2023-07-17 06:19] LABS: CALCIUM 7.5 mg/dL (8.5-10.3); CREATININE 0.4 mg/dL (0.6-1.3); POTASSIUM 3.4 mmol/L (3.5-4.5)
[2023-07-17] MEDS: BENZOCAINE/MENTHOL LOZENGE MM PRN (07:04)
[2023-07-17] MEDS: IPRATROPIUM/ALBUTEROL 3 ML NEB INH PRN ×2 (07:32→18:59)
[2023-07-17] MEDS: BUDESONIDE 0.5 MG/2 ML NEB INH SCH ×2 (07:32→18:59)
[2023-07-17] MEDS: SODIUM CHLORIDE 0.9% 1,000 ML IV SCH ×2 (08:03→17:23)
[2023-07-17] MEDS: APIXABAN 5 MG TABLET PO SCH ×2 (08:04→21:21)
[2023-07-17] MEDS: levoFLOXacin 250 MG TABLET PO SCH (08:05)
[2023-07-17] MEDS: SACCHAROMYCES BOULARDII 250 MG CAPSULE PO SCH ×2 (08:05→16:21)
[2023-07-17] MEDS: TAMSULOSIN 0.4 MG CAPSULE PO SCH (08:05)
[2023-07-17] MEDS: MORPHINE ER 15 MG TABLET PO SCH ×2 (08:05→21:21)
[2023-07-17] MEDS: metroNIDAZOLE 250 MG TABLET PO SCH ×3 (08:07→16:20)
[2023-07-17] MEDS: lisinopriL 20 MG TABLET PO SCH (08:09)
[2023-07-17] MEDS: METOPROLOL TARTRATE 25 MG TABLET PO SCH ×2 (08:09→21:24)
--- NOTE | 2023-07-17 11:28 | PROVIDER PROGRESS NOTE ---
Progress Note July 17, 2023 11:21 AM Mr. Rey is sitting up in bed. TV is on. He is slowly feeding himself breakfast. A little difficult for him to coordinate with his hands and bringing it up to his mouth but he is able to do it. Albeit quite slowly. He says that he does not remember me. He is oriented to person, place today. He denies any pain. Says that his chest does not hurt, that is not coughing. Exam: Temperature is 36.6, heart rate 98, blood pressure 106/60, respirations 18, 94% on room air. Even though he told me he is in no pain, he reports a 6 out of a 10 intensity in his body, hurting all over. Disheveled elderly gentleman with a long ponytail, garcia. No respiratory distress, comfortable cachectic black male. Neck is supple Lungs have rhonchi in the right midlung. I have him take a deep breath and then give me a bit cough in the rhonchi go away. However his cough is weak. No crackles. Diminished at the bases. No respiratory distress. Regular rate and rhythm with a systolic ejection murmur Abdomen is soft, nontender, normal bowel sounds. Last bowel movement yesterday. He has a Garcia catheter draining clear urine. Extremities are with loss of muscle mass, with protuberant bony joints. Trace edema around the ankles. He has deformity of arthritis in both hands and wrist. Kyphosis and scoliosis caused him to have a posture where shoulders are all the way up to his ears, chin is sunken down, and belly is protuberant. Neurologically he has psychomotor slowing but is cooperative. Today he seems m ore forgetful than he was yesterday. Food will get a little caught up and he has to cough a bit but then he swallows. Nursing described his speech is garbled but to me he is clear. Just very slow and pedantic in his response. Lots of space and time in between words to complete a sentence. Although he presented with a left facial droop, I have not seen 1 on exam. And he uses both hands the same way. Legs are lifted off the bed but he cannot keep them up. He has fairly severe moderate weakness that is generalized. Lab: Sodium 130. He was admitted at 132. Potassium low today at 3.4. Carbon dioxide low at 20. BUN 5, creatinine 0.4, fasting glucose 85. White cell count still elevated at 12.7. But is down from 18.6 on admission. Hemoglobin 8.7. He has been drifting down of a hemoglobin of 10 since admission. Platelets are 288. Urine culture grew out Serratia marcescens Blood cultures negative after 2 days Conclusion/Plan - Problem List (1) Syncope Conclusion/Plan: Due to PE and pneumonia leading to his hypoxia. Very altered when he came into the hospital and he is improved on a daily basis since. Easily decompensates with his respiration when he works with PT. Really helps when he is sitting up or sitting in a chair because the bed just causes him to slide down and curl further into himself. He requires a lot of time to complete task such as feeding himself. Physical therapy feels that he should go to a SNF for temporary measures since he is far below his reported baseline. I feel that he is stable for discharge today. We are awaiting authorization for [facility]pc (2) Shortness of breath present but much improved from admission Plan/conclusion PMH of COPD and asthma. Chest x-ray shows scattered pneumonia, and he has had a PE. Amazingly he does not have hypoxia. He was gasping with increased respiratory effort when speaking to the PA student and myself in the emergency room. But by the time he got to [facility] that night and I examined him the next day, he is much more comfortable. I did notice that if I asked him to speak for too long, more than about 5 minutes, he does start to get increased respiratory effort in his shoulder start going up toward his ears more more. Chest/Thorax CTA show bilateral pulm embolism, subpleural septal thickening, pulmonary fibrosis, bilateral pleural effusions, and coronary artery atherosclerosis. Most likely from Pulmonary embolism and pneumonia which lead to COPD exacerbation. Plan: Continue levaquin, anticoagulation, duoneb and Budesonide (3) Pneumonia Plan/conclusion In the outpatient setting he completed 5 days of Augmentin and azithromycin. There is a very good antibiotics to treat a community-acquired pneumonia. I think most of his acute shortness of breath was due to the PE. Pneumonia is mild. But his white cell count is responding. Blood cultures are negative. Started on Levaquin and today is day #4. He completed 3 days of IV therapy and today is the second day of oral therapy. He will complete Levaquin tomorrow for the pneumonia. (4) Pulmonary Emboli Plan/conclusion On Eliquis 10 mg p.o. twice daily for PE. Today is 3 days. After 7 days, I will order 5 mg p.o. twice daily. Eliquis is on our formulary. Xarelto is not. (5) Serratia marcescens UTI Urinalysis grew out a gram-negative joseph. 07/16 it was identified as Serratia marcescens. Patient is already on Levaquin for community-acquired pneumonia. The Serratia is sensitive to the Levaquin. He completed 3 days of IV Levaquin, today is the second day of oral Levaquin. For his pneumonia he can stop the Levaquin at day 5. But because he has the UTI I will continue Levaquin for total of 7 days in this gentleman. He does not have bacteremia. (5) AMS resolved Plan/conclusion The first day he was completely disoriented except to self. By the second day he was oriented to place and self and time. Not situation. Yesterday he kept on forgetting that he had blood clots but he knew he had pneumonia.Today a little forgetful about time/date and he YM even though I have met him several times. His Head CT show no hemorrhage or plaza white differentiation. angiograph CT shows mid and moderate atherosclerotic narrowing without severe stenosis or large vessel occlusion. Plan He does not have any family he wants me to call. Social work did make contact with his roommate who let us know that the patient is a hoarder. Lives in a trailer that is covered in mold and various items with garbage/food etc. Patient also has a dog. Patient left his trailer and has been living with his friend Yfn temporarily. The dog is rambunctious and has caused some damage to Yfn's house. I talked to social work on July 16 about seeing if we can get this gentleman some help through [employer] and [employer] and she was going to give Yfn the website for hearts and [employer]. (6) Hypokalemia Supplement with extra potassium today at 40 mill equivalents K-Dur. Recheck tomorrow.
[2023-07-17] MEDS ORDERED: POTASSIUM CHLORIDE 20 MEQ TABLET PO ONE (11:47)
[2023-07-17] MEDS: oxyCODONE 5 MG TABLET PO PRN (12:48)
[2023-07-17] MEDS: GABAPENTIN 300 MG CAPSULE PO SCH (21:21)
[2023-07-17] MEDS: ATORVASTATIN 10 MG TABLET PO SCH (21:21)
[2023-07-18] MEDS: SODIUM CHLORIDE FLUSH 0.9% 10 ML SYRINGE IVP SCH ×3 (01:35→16:28)
[2023-07-18] MEDS: ACETAMINOPHEN 325 MG TABLET PO PRN (02:18)
[2023-07-18] MEDS: BENZOCAINE/MENTHOL LOZENGE MM PRN ×2 (02:18→04:42)
[2023-07-18] MEDS: SODIUM CHLORIDE 0.9% 1,000 ML IV SCH ×3 (06:43→17:40)
[2023-07-18] MEDS: BUDESONIDE 0.5 MG/2 ML NEB INH SCH ×2 (07:09→17:50)
[2023-07-18 08:10] LABS: BASOPHILS % (AUTO) 0.4 %; EOSINOPHILS # (AUTO) 0.2 10^3/uL (0.0-0.7); EOSINOPHILS % (AUTO) 2.1 %; HCT - HEMATOCRIT 28.1 % (42.0-52.0); HGB - HEMOGLOBIN 8.6 g/dL (14.0-18.0); LYMPHOCYTES # (AUTO) 1.5 10^3/uL (1.5-3.5); LYMPHOCYTES % (AUTO) 15.5 %; MEAN CORPUSCULAR HEMOGLOBIN 28.7 pg (27.0-31.0); MEAN CORPUSCULAR HGB CONC 30.6 g/dL (32.0-36.0); MEAN CORPUSCULAR VOLUME 93.7 fL (80.0-94.0); MEAN PLATELET VOLUME 9.1 fL (7.4-11.4); MONOCYTES # (AUTO) 0.7 10^3/uL (0.0-1.0); MONOCYTES % (AUTO) 6.8 %; NEUTROPHILS # (AUTO) 7.1 10^3/uL (1.5-6.6); NEUTROPHILS % (AUTO) 74.6 %; PLT - PLATELET COUNT 237 10^3/uL (130-450); RED CELL DISTRIBUTION WIDTH 14.6 % (12.0-15.0); WHITE BLOOD COUNT 9.5 x10^3/uL (4.8-10.8)
[2023-07-18 08:24] LABS: CALCIUM 7.4 mg/dL (8.5-10.3); CREATININE 0.4 mg/dL (0.6-1.3); POTASSIUM 3.6 mmol/L (3.5-4.5)
[2023-07-18] MEDS: levoFLOXacin 250 MG TABLET PO SCH (08:41)
[2023-07-18] MEDS: TAMSULOSIN 0.4 MG CAPSULE PO SCH (08:41)
[2023-07-18] MEDS: metroNIDAZOLE 250 MG TABLET PO SCH ×3 (08:41→16:28)
[2023-07-18] MEDS: SACCHAROMYCES BOULARDII 250 MG CAPSULE PO SCH ×2 (08:42→16:28)
[2023-07-18] MEDS: lisinopriL 20 MG TABLET PO SCH (08:43)
[2023-07-18] MEDS: APIXABAN 5 MG TABLET PO SCH ×2 (08:43→20:51)
[2023-07-18] MEDS: MORPHINE ER 15 MG TABLET PO SCH ×2 (08:44→20:52)
[2023-07-18] MEDS: METOPROLOL TARTRATE 25 MG TABLET PO SCH ×2 (08:46→20:52)
[2023-07-18] MEDS: polyethylene glycoL 3350 17 GM PACKET PO SCH (11:23)
[2023-07-18] MEDS: DOCUSATE SODIUM 250 MG CAPSULE PO SCH (11:23)
[2023-07-18] MEDS: SENNA 8.6 MG TABLET PO SCH (11:23)
[2023-07-18] MEDS: oxyCODONE 5 MG TABLET PO PRN ×2 (11:32→18:53)
[2023-07-18] MEDS: IPRATROPIUM/ALBUTEROL 3 ML NEB INH PRN ×2 (11:59→17:50)
--- NOTE | 2023-07-18 16:41 | PROVIDER PROGRESS NOTE ---
Subjective - Prog Note Date Prog Note Date: 07/18/23 Prog Note Time: 16:38 - Subjective Pt reports feeling: Improved Subjective: Interesting gentleman. This morning he was having me fetch coffee and cream. Then it was not hot enough so I needed to heated in the microwave. He then wanted me to rearrange him on the pillows. Then he wanted me to go down on the headboard of the bed. Then bring him up on the headboard. Back down on the headboard. Finally brought it up to about 30 degrees where he would like that patch. After spending about 20 minutes with him, I was getting ready to leave and he asked when I would be coming back to see him to give him his medicine. I explained to him that I had already introduced myself as his physician. I had introduced myself every day. He said he just did not remember. He will write down my name to make sure. I explained to him that as a hospitalist we do 7 days in a row. Today is day #7 and he would be getting a new hospitalist tomorrow. Current Medications - Current Medications Current Medications: Active Medications Acetaminophen (Acetaminophen 325 Mg Tablet) 650 mg PO Q4HR PRN PRN Reason: Pain 1 to 4, or Fever Last Admin: 07/18/23 02:18 Dose: 650 mg Albuterol/Ipratropium (Ipratropium/Albuterol 3 Ml Neb) 3 ml INH Q4HR PRN PRN Reason: Wheezing Last Admin: 07/18/23 11:59 Dose: 3 ml Apixaban (Apixaban 5 Mg Tablet) 10 mg PO BID MARCOS Stop: 07/21/23 09:01 Last Admin: 07/18/23 08:43 Dose: 10 mg Apixaban (Apixaban 5 Mg Tablet) 5 mg PO BID MARCOS Atorvastatin Calcium (Atorvastatin 10 Mg Tablet) 20 mg PO QPM MARCOS Last Admin: 07/17/23 21:21 Dose: 20 mg Budesonide (Budesonide 0.5 Mg/2 Ml Neb) 0.5 mg INH RTBID [facility] Last Admin: 07/18/23 07:09 Dose: 0.5 mg Docusate Sodium (Docusate Sodium 250 Mg Capsule) 250 - 500 mg PO DAILY [facility] Last Admin: 07/18/23 11:23 Dose: 250 mg Gabapentin (Gabapentin 300 Mg Capsule) 300 mg PO QPM [facility] Last Admin: 07/17/23 21:21 Dose: 300 mg Sodium Chloride (Normal Saline 0.9%) 1,000 mls @ 100 mls/hr IV .Q10H [facility] Last Admin: 07/18/23 11:39 Dose: Not Given Levofloxacin (Levofloxacin 250 Mg Tablet) 500 mg PO DAILY [facility] Last Admin: 07/18/23 08:41 Dose: 500 mg Lisinopril (Lisinopril 20 Mg Tablet) 20 mg PO DAILY [facility] Last Admin: 07/18/23 08:43 Dose: 20 mg Metoprolol Tartrate (Metoprolol Tartrate 25 Mg Tablet) 25 mg PO BID [facility] Last Admin: 07/18/23 08:46 Dose: 25 mg Metronidazole (Metronidazole 250 Mg Tablet) 500 mg PO TIDWM [facility] Last Admin: 07/18/23 16:28 Dose: 500 mg Morphine Sulfate (Morphine Er 15 Mg Tablet) 15 mg PO BID [facility] Last Admin: 07/18/23 08:44 Dose: 15 mg Ondansetron HCl (Ondansetron Odt 4 Mg Tablet) 4 mg TL Q6HR PRN PRN Reason: Nausea / Vomiting Ondansetron HCl (Ondansetron 4 Mg/2 Ml Vial) 4 mg IVP Q6HR PRN PRN Reason: Nausea / Vomiting Oxycodone HCl (Oxycodone 5 Mg Tablet) 25 mg PO QID PRN PRN Reason: PAIN 5-7 Last Admin: 07/18/23 11:32 Dose: 25 mg Phenol/Menthol (Phenol Throat Ava 177 Ml) 2 sprays MM Q2HR PRN PRN Reason: Throat Pain Last Admin: 07/17/23 12:48 Dose: 2 sprays Polyethylene Glycol (Polyethylene Glycol 3350 17 Gm Packet) 17 gm PO DAILY [facility] Last Admin: 07/18/23 11:23 Dose: Not Given Prochlorperazine Edisylate (Prochlorperazine 10 Mg/2 Ml Vial) 10 mg IVP Q6HR PRN PRN Reason: Nausea / Vomiting Saccharomyces Boulardii (Saccharomyces Boulardii 250 Mg Capsule) 250 mg PO BIDWM [facility] Last Admin: 07/18/23 16:28 Dose: 250 mg Senna (Senna 8.6 Mg Tablet) 8.6 - 17.2 mg PO DAILY [facility] Last Admin: 07/18/23 11:23 Dose: 8.6 mg Sodium Chloride (Sodium Chloride Flush 0.9% 10 Ml Syringe) 10 ml IVP PRN PRN PRN Reason: NEEDED PER PROVIDER ORDERS Sodium Chloride (Sodium Chloride Flush 0.9% 10 Ml Syringe) 10 ml IVP 0100, 0900,1700 [facility] Last Admin: 07/18/23 16:28 Dose: 10 ml Tamsulosin HCl (Tamsulosin 0.4 Mg Capsule) 0.4 mg PO DAILY [facility] Last Admin: 07/18/23 08:41 Dose: 0.4 mg Throat Lozenges (Benzocaine/Menthol Lozenge) 1 lozenge MM Q2HR PRN PRN Reason: Throat pain Last Admin: 07/18/23 04:42 Dose: 1 lozenge Albuterol 2.5 mg INH Q4H PRN 04/14/13 Albuterol Sulf [Ventolin Hfa Inhaler] 1 - 2 puffs INH Q4HR PRN 07/13/23 Aspirin EC [Ecotrin] 81 mg PO DAILY 07/13/23 Atorvastatin [Lipitor] 20 mg PO QPM 07/13/23 Budesonide/Formoterol Fumarate [Symbicort 160-4.5 Mcg Inhaler] 2 puffs IH BID 07/13/23 Furosemide [Lasix] 40 mg PO DAILY 07/13/23 Gabapentin [Neurontin] 300 mg PO QPM 07/13/23 Lisinopril [Zestril] 20 mg PO DAILY 07/13/23 Morphine Sulfate [Ms Contin] 15 mg PO BID 07/13/23 Tamsulosin [Flomax] 0.4 mg PO DAILY 07/13/23 oxyCODONE [Roxicodone] 30 mg ORAL QID 07/13/23 Objective - Vital Signs/Intake & Output Reviewed Vital Signs: Yes Vital Signs: Vital Signs x48h Temp Pulse Pulse Resp BP BP Pulse Ox 07/18/23 16:13 36.6 C 97 20 91/62 97 07/18/23 12:01 89 17 07/18/23 08:46 116/67 Intake & Output: Intake & Output 07/15/23 07/16/23 07/17/23 07/18/23 23:59 23:59 23:59 23:59 Intake Total 4431.667 3680.000 4018.333 1046.667 Output Total 1100 1050 625 450 Balance 3331.667 2630.000 3393.333 596.667 - Objective General Appearance: positive: No acute distress, Alert, Other (Elderly disheveled male with long hair, disheveled garcia. Speech is normal. Mobility limited by kyphoscoliosis) Eyes Bilateral: positive: PERRL, EOMI ENT: positive: No signs of dehydration Neck: positive: No JVD. negative: Stiff neck Respiratory: positive: No respiratory distress. negative: Wheezes, Rales, Rhonchi Cardiovascular: positive: Regular rate & rhythm Abdomen: positive: Non-tender, No organomegaly, Nml bowel sounds, No distention Skin: positive: Warm, Dry Extremities: positive: No pedal edema Neurologic/Psychiatric: positive: Oriented x3, CN's nml (2-12). negative: Motor nml - Lab Results Fish Bones: 07/18/23 07:58 07/18/23 07:58 Other Labs: Lab Results x24hrs 07/18/23 07/18/23 Range/Units 07:58 07:58 WBC 9.5 (4.8-10.8) x10^3/uL RBC 3.00 L (4.70-6.10) 10^6/uL Hgb 8.6 L (14.0-18.0) g/dL Hct 28.1 L (42.0-52.0) % MCV 93.7 (80.0-94.0) fL MCH 28.7 (27.0-31.0) pg MCHC 30.6 L (32.0-36.0) g/dL RDW 14.6 (12.0-15.0) % Plt Count 237 (130-450) 10^3/uL MPV 9.1 (7.4-11.4) fL Neut # (Auto) 7.1 H (1.5-6.6) 10^3/uL Lymph # (Auto) 1.5 (1.5-3.5) 10^3/uL Blaine # (Auto) 0.7 (0.0-1.0) 10^3/uL Eos # (Auto) 0.2 (0.0-0.7) 10^3/uL Baso # (Auto) 0.0 (0.0-0.1) 10^3/uL Absolute Nucleated RBC 0.00 x10^3/uL Nucleated RBC % 0.0 /100WBC Sodium 131 L (135-145) mmol/L Potassium 3.6 (3.5-4.5) mmol/L Chloride 108 (101-111) mmol/L Carbon Dioxide 20 L (21-32) mmol/L Anion Gap 3.0 L (6-13) BUN 4 L (6-20) mg/dL Creatinine 0.4 L (0.6-1.3) mg/dL Estimated GFR (MDRD) 209 (>89) Glucose 98 (74-104) mg/dL Calcium 7.4 L (8.5-10.3) mg/dL Assessment/Plan - Problem List (1) Syncope Impression: Conclusion/Plan Today, other than reassessing his potassium which has been supplemented yesterday, not much new management occurred. We are continuing his p.o. antibiotics for managing his pneumonia and UTI. He is stable for discharge to a skilled nursing to complete rehab. He was ready yesterday and today is an avoidable day as we wait authorization. - Problem List (1) Syncope Conclusion/Plan: Due to PE and pneumonia leading to his hypoxia. He had been seen in the ER for pneumonia. Put on antibiotics and sent home. The roommate actually saw him have his syncope. Initially they were postulating he had too much of his opioid pain medicine. Very altered when he came into the hospital and he is improved on a daily basis since. He is reluctant to work with PT. Requires a lot of repositioning in the bed when he spends his time in bed. A lot of it has to do with his posture, kyphoscoliosis. He requires a lot of time to complete task such as feeding himself. Physical therapy feels that he should go to a SNF for temporary measures since he is far below his reported baseline. The last time physical therapy saw him was July 16. He continued to demonstrate impairments in mobility and ADLs. He is a mod assist x 1 from supine to assist and mod assist x 2 from sit to standing with a front wheel walker. He is below his baseline with regards to his to ability to take care of himself at home. He was stable for discharge after being 24 hours of oral antibiotics. That was July 17. He has been accepted at [facility] but [facility] is still waiting for authorization from [place]. (2) Shortness of breath present but much improved from admission Plan/conclusion PMH of COPD and asthma. Chest x-ray shows scattered pneumonia, and he has had a PE. Amazingly he does not have hypoxia. He was gasping with increased respiratory effort when speaking to the PA student and myself in the emergency room. But by the time he got to [facility] that night and I examined him the next day, he is much more comfortable. I did notice that if I asked him to speak for too long, more than about 5 minutes, he does start to get increased respiratory effort in his shoulder start going up toward his ears more more. Chest/Thorax CTA show bilateral pulm embolism, subpleural septal thickening, pulmonary fibrosis, bilateral pleural effusions, and coronary artery atherosclerosis. Most likely from Pulmonary embolism and pneumonia which lead to COPD exacer bation. By July 17, he was speaking comfortably without tachypnea or increased respiratory effort. Today I believe he is baseline with his respiratory effort as well. Plan: Continue levaquin, anticoagulation, duoneb and Budesonide (3) Pneumonia Plan/conclusion In the outpatient setting he completed 5 days of Augmentin and azithromycin. There is a very good antibiotics to treat a community-acquired pneumonia. I think most of his acute shortness of breath was due to the PE. Pneumonia is mild. But his white cell count is responding. Blood cultures are negative. Started on Levaquin and today is day #5. He completed 3 days of IV therapy And today is the third day of oral Levaquin. Theoretically he could stop being treated for pneumonia. But he has a UTI. Because of the UTI, he should complete Levaquin therapy on day 7 which is July 20. (4) Pulmonary Emboli Plan/conclusion On Eliquis 10 mg p.o. twice daily for PE. Today is 4 days. After 7 days, I will order 5 mg p.o. twice daily. Eliquis is on our formulary. Xarelto is not. (5) Serratia marcescens UTI Urinalysis grew out a gram-negative joseph. 07/16 it was identified as Serratia marcescens. Patient is already on Levaquin for community-acquired pneumonia. The Serratia is sensitive to the Levaquin. He completed 3 days of IV Levaquin, today is the third day of oral Levaquin. For his pneumonia he can stop the Levaquin at day 5. But because he has the UTI I will continue Levaquin for total of 7 days in this gentleman. He does not have bacteremia. Stop the levaquin on 07/20. (5) AMS resolved Plan/conclusion The first day he was completely disoriented except to self. By the second day he was oriented to place and self and time. Not situation. On the 3rd day he kept on forgetting that he had blood clots but he knew he had pneumonia.Today a little forgetful about time/date and he YM even though I have met him several times. His Head CT show no hemorrhage or plaza white differentiation. angiograph CT shows mid and moderate atherosclerotic narrowing without severe stenosis or large vessel occlusion. Plan He does not have any family he wants me to call. Social work did make contact with his roommate who let us know that the patient is a hoarder. Lives in a trailer that is covered in mold and various items with garbage/food etc. Patient also has a dog. Patient left his trailer and has been living with his friend Yfn temporarily. The dog is rambunctious and has caused some damage to Yfn's house. I talked to social work on July 16 about seeing if we can get this gentleman some help through [employer] and [employer] and she was going to give Yfn the website for hearts and [employer]. The patient says he has gotten that message. They have contacted heart and [employer] and can to see if they can help him with his house. (6) Hypokalemia Yesterday he was low at 3.4. Supplemented with oral potassium and he is 3.6 today.
[2023-07-18] MEDS: ATORVASTATIN 10 MG TABLET PO SCH (20:51)
[2023-07-18] MEDS: GABAPENTIN 300 MG CAPSULE PO SCH (20:51)
[2023-07-18] MEDS: PHENOL THROAT SPRAY 177 ML MM PRN (20:58)
[2023-07-19] MEDS: SODIUM CHLORIDE FLUSH 0.9% 10 ML SYRINGE IVP SCH ×2 (02:46→09:10)
[2023-07-19] MEDS: SODIUM CHLORIDE 0.9% 1,000 ML IV SCH (03:06)
[2023-07-19] MEDS: PHENOL THROAT SPRAY 177 ML MM PRN (04:37)
[2023-07-19] MEDS: IPRATROPIUM/ALBUTEROL 3 ML NEB INH PRN ×2 (04:47→11:44)
[2023-07-19] MEDS: BUDESONIDE 0.5 MG/2 ML NEB INH SCH (04:47)
[2023-07-19 05:26] LABS: BASOPHILS # (AUTO) 0.1 10^3/uL (0.0-0.1); BASOPHILS % (AUTO) 0.4 %; EOSINOPHILS # (AUTO) 0.3 10^3/uL (0.0-0.7); EOSINOPHILS % (AUTO) 2.3 %; HCT - HEMATOCRIT 28.7 % (42.0-52.0); LYMPHOCYTES # (AUTO) 2.4 10^3/uL (1.5-3.5); LYMPHOCYTES % (AUTO) 20.1 %; MEAN CORPUSCULAR HEMOGLOBIN 28.8 pg (27.0-31.0); MEAN CORPUSCULAR HGB CONC 31.4 g/dL (32.0-36.0); MONOCYTES # (AUTO) 0.8 10^3/uL (0.0-1.0); MONOCYTES % (AUTO) 6.7 %; NEUTROPHILS # (AUTO) 8.3 10^3/uL (1.5-6.6); NEUTROPHILS % (AUTO) 69.9 %; PLT - PLATELET COUNT 247 10^3/uL (130-450); RED BLOOD COUNT 3.12 10^6/uL (4.70-6.10); RED CELL DISTRIBUTION WIDTH 14.9 % (12.0-15.0); WHITE BLOOD COUNT 11.9 x10^3/uL (4.8-10.8)
[2023-07-19 05:39] LABS: CALCIUM 7.5 mg/dL (8.5-10.3); CREATININE 0.4 mg/dL (0.6-1.3); POTASSIUM 3.7 mmol/L (3.5-4.5)
[2023-07-19] MEDS: METOPROLOL TARTRATE 25 MG TABLET PO SCH (08:06)
[2023-07-19] MEDS: polyethylene glycoL 3350 17 GM PACKET PO SCH (08:06)
[2023-07-19] MEDS: DOCUSATE SODIUM 250 MG CAPSULE PO SCH (08:06)
[2023-07-19] MEDS: lisinopriL 20 MG TABLET PO SCH (08:06)
[2023-07-19] MEDS: MORPHINE ER 15 MG TABLET PO SCH (08:08)
[2023-07-19] MEDS: TAMSULOSIN 0.4 MG CAPSULE PO SCH (08:08)
[2023-07-19] MEDS: SACCHAROMYCES BOULARDII 250 MG CAPSULE PO SCH (08:08)
[2023-07-19] MEDS: metroNIDAZOLE 250 MG TABLET PO SCH (08:08)
[2023-07-19] MEDS: APIXABAN 5 MG TABLET PO SCH (08:09)
[2023-07-19] MEDS: levoFLOXacin 250 MG TABLET PO SCH (08:09)
[2023-07-19] MEDS: SENNA 8.6 MG TABLET PO SCH (08:09)
[2023-07-19 08:48] VITALS: BP 105/65; O2SAT 92
[2023-07-19] MEDS: ACETAMINOPHEN 325 MG TABLET PO PRN (09:34)
--- NOTE | 2023-07-19 10:48 | Discharge Plan ---
"Discharge Plan for SNF / [facility] - Discharge Plan And Transition Orders Problem Reviewed?: Yes Disposition: 03 SNF DC/Xfer Condition: Fair Allergies and Adverse Reactions: Allergies Allergy/AdvReac Type Severity Reaction Status Date / Time No Known Drug Allergies Allergy Verified 07/13/23 21:59 Health Concerns: Patient admitted after syncope and found to have pneumonia, COPD exacerbation, acute pulmonary embolism and UTI. Plan of Treatment: Complete antibiotics. Continue with his COPD meds. Patient needs daily PT and OT at SNF. Care Goals: Improvement in symptoms and stabilization are the goals. Assessment: Patient understands and is agreeable with the plan. - SNF / [facility] Transition Orders Admit to (Facility): [facility] Under the care of (Name): Dr Butch Mendez Discharge Diagnosis: (1) Syncope The roommate actually saw him have his syncope. Initially they were postulating he had too much of his opioid pain medicine. Now we think it was due to PE and pneumonia, leading to hypoxia. (2) Pneumonia Chest x-ray showed scattered pneumonia. He should complete Levaquin therapy on day 7 which is July 20. (3) Pulmonary Emboli Chest/Thorax CTA show bilateral pulm embolism, subpleural septal thickening, pulmonary fibrosis, bilateral pleural effusions, and coronary artery atherosclerosis. He is on Eliquis 10 mg p.o. twice daily for PE. Today is 5 days. After 7 days, he should be on 5 mg p.o. BID. (Eliquis is on our formulary. Xarelto is not). (4) Serratia marcescens UTI He should complete Levaquin therapy on day 7 which is July 20. (5) COPD/asthma Most likely from Pulmonary embolism and pneumonia which led to a COPD exacerbation. Now improved. Continue Duoneb and Budesonide (6) Poor memory His Head CT show no hemorrhage or plaza white differentiation. Angiograph CT shows mid and moderate atherosclerotic narrowing without severe stenosis or lar ge vessel occlusion. Patient is a hoarder, lived in a trailer that is covered in mold and items with garbage/food, per neighbor. Patient has a dog. Patient left his trailer and has been living with his friend Yfn. (7) Generalized weakness Had altered mental status when he came into the hospital, which improved on a daily basis. He was reluctant to work with PT, required a lot of repositioning in bed, when he spends his time in bed., which has alot to do with his posture: kyphoscoliosis. He requires a lot of time to complete task such as feeding himself. He is a mod assist x 1 from supine to sit and mod assist x 2 from sit to standing with a front wheel walker. He is below his baseline with regards to his to ability to take care of himself at home and needs PT & OT rehab. (8) AMS Resolved The first day he was completely disoriented except to self. By the second day he was oriented to place and self and time, but not to situation. On the 3rd day he kept on forgetting that he had blood clots but he knew he had pneumonia. Now we see he is forgetful about time/date (9) Hypokalemia Replaced Medicare Certification Statement: I certify that [facility] alf care is medically necessary on a continuing basis for any of the conditions for which she/he is receiving care during hospitalization. Notify PCP of admission and forward orders to primary provider for signature. Weight on admission and: Weekly Call PCP immediately if weight increases by: 5 kg Other Notification Orders: Call PCP immediately if patient develops dyspnea, chest pain/tightness or edema. House Bowel Program: Yes Additional Bowel Program Orders: If no BM after 2 days, nurse may give M.O.M. 30ml PO PRN and/or ducolax Supp 1 MA and/or ARNOLD 250mg P.O., and/or senna 1-2 tabs PO. On day 3 nurse may give repeat above order until residents constipation is resolved. Annual Influenza Vaccine (between Apr 08 and November 05): Yes Two-step PPD per [facility] [id number] or approved exception documents: Yes Treatments & Other Orders: Daily PT and OT Medication Orders: PLEASE REFER TO THE DISCHARGE MEDICATION LIST. Insulin Orders?: No - Medications New Prescriptions: Ipratropium/Albuterol [Duoneb] 3 ml INH Q4HR PRN #12 ea PRN Reason: Wheezing Apixaban [Eliquis] 10 mg PO BID #10 tab Apixaban [Eliquis] 5 mg PO BID #60 tablet Saccharomyces Boulardii [Florastor] 250 mg PO BID #4 cap Furosemide [Lasix] 40 mg PO MOWEFR #15 tab levoFLOXacin [Levaquin] 750 mg PO DAILY 3 Days #9 tab Budesonide [Pulmicort] 0.5 mg INH RTBID #12 ea Metoprolol Succinate [Toprol Xl] 25 mg PO DAILY #60 tablet - Diet Type: Geriatric (Low cholesterol) Texture: Regular Liquids: Thin May have monthly special meal: Yes - Therapies | Activity Therapy: Evaluation | Treat if indicated: PT, OT Rehabilitation Potential: Maximize functional status Activity: Activity as Tolerated Weight Bearing: Full Weight Assistance Devices: Walker Follow Up: See PCP after discharge from SNF."
--- NOTE | 2023-07-19 11:18 | DISCHARGE SUMMARY ---
Discharge Summary Admit Date: 07/14/23 Discharge Date: 07/19/23 Discharging Provider: Dr Carmen Miranda Primary Care Provider: Dr Butch Mendez Condition at Discharge: Fair Discharge Disposition: 03 SNF DC/Xfer - HPI History of Present Illness: 77yM presents with a history of COPD is seen at the ED after being seen for pneumonia two days prior with cough/soa. He was discharged home with antibiotics. After patient went home, his roommate witnessed him reporting chest pain and heavy breathing before becoming unresponsive. His roommate then called 911 pateint arrived to the ED with GCS 5, his current GCS is 13. he did not respond to 2mg narcan. BP ranges from 124-145/75-105. HR 127-69. His O2 sat is 96-99% on RA. His X ray show mild edema or pneumonia. His Head CT show no hem orrhage or plaza white differentiation. angiograph CT shows mid and moderate atherosclerotic narrowing without severe stenosis or large vessel occlusion. Abdominal CT shows no abnormalities. Chest/Thorax CTA show bilateral pulm embolism, subpleural septal thickening, pulmonary fibrosis, bilateral pleural effusions, and coronary artery atherosclerosis. He is showing AMS with disorientation to time and place but is able to stay awake and answering questions appropriately while asking conversing back. He has difficulties remembering how he got to the hospital and his daily activities at home. He v oiced he has no family members but according to the ED notes he has a daughter in [place] who says he is DNR and thus no intubation was made for the patient. he was given Ceftriaxone started on IV normal saline. - HOSPITAL COURSE Hospital Course: (1) Syncope The roommate actually saw him have his syncope. Initially they were postulating he had too much of his opioid pain medicine. Now we think it was due to PE and pneumonia, leading to hypoxia. (2) Pneumonia Chest x-ray showed scattered pneumonia. He was on iv Levaquin , transitioned to oral and should complete Levaquin therapy on day 7 which is July 20. (3) Pulmonary Emboli Chest/Thorax CTA show bilateral pulm embolism, subpleural septal thickening, pulmonary fibrosis, bilateral pleural effusions, and coronary artery atherosclerosis. He is on Eliquis 10 mg p.o. twice daily for PE. Today is 5 days. After 7 days, he should be on 5 mg p.o. BID. (Eliquis is on our formulary. Xarelto is not). (4) UTI He should complete Levaquin therapy on day 7 which is July 20. (5) Serratia marcescens infection Treated with Levaquin. Plan as in #4 (6) COPD/asthma Most likely from Pulmonary embolism and pneumonia which led to a COPD exacerbation. Now improved. Continue Duoneb and Budesonide (7) Poor memory His Head CT showed no hemorrhage or plaza white differentiation. Angiograph CT shows mid and moderate atherosclerotic narrowing without severe stenosis or large vessel occlusion. Patient is a hoarder, lived in a trailer that is covered in mold and items with garbage/food, per neighbor. Patient left his trailer and has been living with his friend Yfn. (8) Generalized weakness Had altered mental status when he came into the hospital, which improved on a daily basis. He was reluctant to work with PT, required a lot of repositioning in bed, when he spends his time in bed., which has alot to do with his posture: kyphoscoliosis. He requires a lot of time to complete task such as feeding himself. He is a moderate assist from supine to sit and moderate assist from sit to standing with a front wheel walker. He is below his baseline with regards to his to ability to take care of himself at home and needs PT & OT rehab and was discharged to a SNF. (9) AMS Resolved. The first day he was completely disoriented except to self. By the second day he was oriented to place and self and time, but not to situation. On the 3rd day he kept on forgetting that he had blood clots but he knew he had pneumonia. Now we see he is forgetful about things like time/date (10) Hypokalemia Replaced - ALLERGIES Allergies/Adverse Reactions: Allergies Allergy/AdvReac Type Severity Reaction Status Date / Time No Known Drug Allergies Allergy Verified 07/13/23 21:59 - MEDICATIONS Home Medications: Ambulatory Orders Medication Instructions Recorded Confirmed Albuterol 2.5 mg INH Q4H PRN 04/14/13 07/14/23 Albuterol Sulf [Ventolin Hfa 1 - 2 puffs INH Q4HR PRN 07/13/23 07/14/23 Inhaler] Aspirin EC [Ecotrin] 81 mg PO DAILY 07/13/23 07/14/23 Atorvastatin [Lipitor] 20 mg PO QPM 07/13/23 07/14/23 Budesonide/Formoterol Fumarate 2 puffs IH BID 07/13/23 07/14/23 [Symbicort 160-4.5 Mcg Inhaler] Gabapentin [Neurontin] 300 mg PO QPM 07/13/23 07/14/23 Ipratropium [Atrovent] 0.5 mg INH QID 20 Days #200 ml 07/13/23 07/14/23 Morphine Sulfate [Ms Contin] 15 mg PO BID 07/13/23 07/14/23 Tamsulosin [Flomax] 0.4 mg PO DAILY 07/13/23 07/14/23 Acetaminophen [Tylenol] 650 mg PO Q4HR PRN tab 07/19/23 Apixaban [Eliquis] 5 mg PO BID #60 tablet 07/19/23 Apixaban [Eliquis] 10 mg PO BID #10 tab 07/19/23 Budesonide [Pulmicort] 0.5 mg INH RTBID #12 ea 07/19/23 Furosemide [Lasix] 40 mg PO MOWEFR #15 tab 07/19/23 Ipratropium/Albuterol [Duoneb] 3 ml INH Q4HR PRN #12 ea 07/19/23 Metoprolol Succinate [Toprol Xl] 25 mg PO DAILY #60 tablet 07/19/23 Saccharomyces Boulardii [Florastor] 250 mg PO BID #4 cap 07/19/23 levoFLOXacin [Levaquin] 750 mg PO DAILY 3 Days #9 tab 07/19/23 oxyCODONE [Roxicodone] 30 mg ORAL QID PRN #10 tab 07/19/23 07/14/23 - PHYSICAL EXAM AT DISCHARGE General Appearance: positive: No acute distress, Alert, Other (Disheveled, has garcia.) Eyes Bilateral: positive: Normal inspection, EOMI ENT: positive: ENT inspection nml, No signs of dehydration, Other (Poor dentition) Neck: positive: Nml inspection, No JVD Respiratory: positive: No respiratory distress, Breath sounds nml Cardiovascular: positive: Regular rate & rhythm, No murmur Abdomen: positive: Non-tender, Nml bowel sounds, No distention Skin: positive: Warm, Dry, Other (Poor hygiene) Extremities: positive: Non-tender, No pedal edema Neurologic/Psychiatric: positive: CN's nml (2-12), Motor nml, Disoriented to time - LABS Result Diagrams: 07/19/23 05:11 07/19/23 05:11 - DIAGNOSTIC IMAGING Diagnostic Imaging Results: Final report reviewed - FOLLOW UP Follow Up: See PCP after discharge from SNF. - TIME SPENT Time Spent in Discharge (Minutes): 45
[2023-07-21] MEDS ORDERED: APIXABAN 5 MG TABLET PO SCH (21:00)
== END 2023-07-19 12:10 | DRG 175 ==
LOC: EDUNIT# → ED 21:28 → MS2 07-14 16:16
PROVIDERS: ADMIT Specialist; ATTEND Internal Medicine
DX: I26.99 Other pulmonary embolism without acute cor pulmonale (principal); R40.4 Transient alteration of awareness; J18.9 Pneumonia, unspecified organism; N39.0 Urinary tract infection, site not specified; R09.02 Hypoxemia; J44.0 Chronic obstructive pulmonary disease with (acute) lower respiratory infection; G89.29 Other chronic pain; J98.4 Other disorders of lung; J45.909 Unspecified asthma, uncomplicated; J44.1 Chronic obstructive pulmonary disease with (acute) exacerbation; R64 Cachexia; J90 Pleural effusion, not elsewhere classified; E87.1 Hypo-osmolality and hyponatremia; B96.89 Other specified bacterial agents as the cause of diseases classified elsewhere; R41.3 Other amnesia; R53.1 Weakness; R41.82 Altered mental status, unspecified; E87.6 Hypokalemia; I10 Essential (primary) hypertension; Z87.891 Personal history of nicotine dependence; Z66 Do not resuscitate; Z68.23 Body mass index [BMI] 23.0-23.9, adult; M40.209 Unspecified kyphosis, site unspecified; J84.10 Pulmonary fibrosis, unspecified; I25.10 Atherosclerotic heart disease of native coronary artery without angina pectoris; D64.9 Anemia, unspecified; M19.90 Unspecified osteoarthritis, unspecified site; R00.0 Tachycardia, unspecified
CPT/HCPCS: 36415; 70450; 70496; 70498; 71045; 71275; 74177; 80048; 80053; 80306; 80307; 81001; 82550; 83605; 83690; 83735; 84443; 85025; 87040; 87077; 87086; 87181; 87633; 93005; 94640; 96365; 96367; 96372; 96375; 97162; 97166; 97530; 99285; A9270; G0480; J1170; J1650; J7626; J8540; Q9967; 80320; 80329; 81003